=== PATIENT | male | born 1970 | race Caucasian/White ===

== ENCOUNTER 2017-07-08 07:23 | Emergency (ER) | payer MEDICARE, MEDICAID ==
[~2017-07-08] VITALS: Ht 162.6 cm; Wt 90.0 kg
[2017-07-08] MEDS ORDERED: normal saline 1000ML IV soln IVB ONE (07:55)
[2017-07-08] MEDS ORDERED: morphine 4 MG/ML inj SYRINge IV ONE (07:55)
[2017-07-08 08:04] LABS: BASOPHILS % (AUTO) 0.4 % (0-1); EOSINOPHILS # (AUTO) 0.3 X10'3 (0-0.9); EOSINOPHILS % (AUTO) 3.2 % (0-6); HEMATOCRIT 43.8 % (42.0-52.0); HEMOGLOBIN 14.3 g/dl (14.0-17.9); LYMPHOCYTES # (AUTO) 1.4 X10'3 (1.1-4.8); LYMPHOCYTES % (AUTO) 16.2 % (21-51); MEAN CORPUSCULAR HEMOGLOBIN 26.4 PG (27.0-31.0); MEAN CORPUSCULAR HGB CONC 32.7 % (33.0-36.5); MEAN CORPUSCULAR VOLUME 80.7 FL (78-98); MEAN PLATELET VOLUME 7.6 FL (7.4-10.4); MONOCYTES # (AUTO) 0.7 X10'3 (0-0.9); MONOCYTES % (AUTO) 8.8 % (2-12); NEUTROPHILS % (AUTO) 71.4 % (42-75); PLATELET COUNT 539 X10'3 (140-440); RED BLOOD COUNT 5.43 X10'6 (4.70-6.10); RED CELL DISTRIBUTION WIDTH 20.7 % (11.5-14.5); WHITE BLOOD COUNT 8.4 X10'3 (4.5-11.0)
[2017-07-08 08:25] LABS: ALANINE AMINOTRANSFERASE 31 U/L (12-78); ALBUMIN 3.7 G/DL (3.4-5.0); ALBUMIN/GLOBULIN RATIO 0.9 (1.1-1.5); ALKALINE PHOSPHATASE 124 IU/L (46-116); ANION GAP 16 (8-16); ASPARTATE AMINO TRANSFERASE 19 U/L (10-37); BILIRUBIN,TOTAL 0.9 MG/DL (0.1-1.0); BLOOD UREA NITROGEN 19 MG/DL (7-18); BUN/CREATININE RATIO 21.8 (5.4-32.0); CALCIUM 9.7 MG/DL (8.5-10.1); CHLORIDE 103 MMOL/L (99-107); CREATININE 0.87 MG/DL (0.60-1.10); ETHANOL < 0.010 GM/DL (0.0-0.010); GLUCOSE 118 MG/DL (70-104); POTASSIUM 3.3 MMOL/L (3.5-5.1); SODIUM 139 MMOL/L (135-145); TOTAL CARBON DIOXIDE 19.9 MMOL/L (24-32); TOTAL PROTEIN 7.8 G/DL (6.4-8.2); eGFR > 90 ML/MIN
[2017-07-08 08:52] LABS: CLARITY,URINE CLEAR (Clear); COLOR,URINE YELLOW (Yellow); GLUCOSE, URINE NEGATIVE (Neg); KETONES,URINE 40 mg/dl (Neg); LEUKOCYTE ESTERASE ,URINE NEGATIVE (Neg); NITRITES, URINE NEGATIVE (Neg); OCCULT BLOOD,URINE TRACE-INTACT (Neg); PROTEIN,URINE TRACE mg/dl (Neg); UROBILINOGEN,URINE 0.2 E.U/dL (0.2-1.0)
[2017-07-08 08:53] LABS: UA COLLECTION TYPE URINAL
[2017-07-08 09:01] LABS: WBC,URINE NONE SEEN /HPF (0-4)
[2017-07-08 09:02] LABS: BACTERIA,URINE NONE SEEN /HPF (Neg); MUCUS STRANDS FEW /LPF (Neg); RBC,URINE 0-2 /HPF (0-2); SQUAMOUS EPITHELIAL CELL,UR FEW /LPF (FEW)
[2017-07-08] MEDS ORDERED: IBUP-1984 PO (09:05)
[2017-07-08 09:08] LABS: URINE AMPHETAMINE SCREEN NEGATIVE (Neg); URINE BARBITUATE SCREEN NEGATIVE (Neg); URINE BENZODIAZEPINES SCREEN NEGATIVE (Neg); URINE CANNABINOID SCREEN POSITIVE (Neg); URINE COCAINE SCREEN NEGATIVE (Neg); URINE METHADONE SCREEN NEGATIVE (Neg); URINE OPIATE SCREEN POSITIVE (Neg); URINE PHENCYCLIDINE SCREEN NEGATIVE (Neg)
[2017-07-08 09:24] VITALS: BP 152/88
== END 2017-07-08 09:27 | disposition home or self-care (01) ==
LOC: ER 07:24
DX: N50.82 Scrotal pain (principal); N43.3 Hydrocele, unspecified; E78.5 Hyperlipidemia, unspecified; I10 Essential (primary) hypertension; K21.9 Gastro-esophageal reflux disease without esophagitis
CPT/HCPCS: 36415; 76870; 80053; 80305; 80320; 81001; 85025; 93005; 96374; 99285; J2270; J7030

== ENCOUNTER 2017-08-21 19:01 | Emergency (ER) | payer MEDICARE, OTHER ==
[~2017-08-21] VITALS: Ht 162.6 cm; Wt 80.7 kg
[2017-08-21 19:06] VITALS: BP 101/74
== END 2017-08-21 20:34 | disposition home or self-care (01) ==
LOC: ER 19:02
DX: F19.10 Other psychoactive substance abuse, uncomplicated (principal); F41.9 Anxiety disorder, unspecified; E78.00 Pure hypercholesterolemia, unspecified; I10 Essential (primary) hypertension; K21.9 Gastro-esophageal reflux disease without esophagitis; F12.90 Cannabis use, unspecified, uncomplicated; F15.90 Other stimulant use, unspecified, uncomplicated
CPT/HCPCS: 99283

== ENCOUNTER 2018-03-28 18:12 | Emergency (ER) | payer MEDICARE, OTHER ==
[~2018-03-28] VITALS: Ht 162.6 cm; Wt 67.3 kg
[2018-03-28 18:47] VITALS: BP 147/92
--- NOTE | 2018-03-28 19:14 | NUR ---
CONTACTED TELEPSYCH TO INITIATE CONSULT.
[2018-03-28 19:48] LABS: ALBUMIN 2.9 G/DL (3.4-5.0); ANION GAP 12 (8-16); BLOOD UREA NITROGEN 17 MG/DL (7-18); BUN/CREATININE RATIO 22.7 (5.4-32.0); CALCIUM 8.4 MG/DL (8.5-10.1); CHLORIDE 109 MMOL/L (99-107); CREATININE 0.75 MG/DL (0.60-1.10); GLUCOSE 77 MG/DL (70-104); POTASSIUM 3.6 MMOL/L (3.5-5.1); SODIUM 148 MMOL/L (135-145); TOTAL CARBON DIOXIDE 26.6 MMOL/L (24-32); eGFR > 90 ML/MIN
[2018-03-28 19:50] LABS: BASOPHILS % (AUTO) 0.3 % (0-1); EOSINOPHILS # (AUTO) 0.3 X10'3 (0-0.9); EOSINOPHILS % (AUTO) 3.8 % (0-6); HEMATOCRIT 35.5 % (42.0-52.0); HEMOGLOBIN 11.9 g/dl (14.0-17.9); LYMPHOCYTES # (AUTO) 1.8 X10'3 (1.1-4.8); MEAN CORPUSCULAR HEMOGLOBIN 29.2 PG (27.0-31.0); MEAN CORPUSCULAR HGB CONC 33.4 g/dL (33.0-36.5); MEAN CORPUSCULAR VOLUME 87.5 FL (78-98); MEAN PLATELET VOLUME 6.8 FL (7.4-10.4); MONOCYTES # (AUTO) 0.5 X10'3 (0-0.9); MONOCYTES % (AUTO) 7.1 % (2-12); NEUTROPHILS % (AUTO) 64.8 % (42-75); PLATELET COUNT 527 X10'3 (140-440); RED BLOOD COUNT 4.06 X10'6 (4.70-6.10); RED CELL DISTRIBUTION WIDTH 17.6 % (11.5-14.5); WHITE BLOOD COUNT 7.7 X10'3 (4.5-11.0)
[2018-03-28 19:56] LABS: URINE AMPHETAMINE SCREEN POSITIVE (Neg); URINE BARBITUATE SCREEN NEGATIVE (Neg); URINE BENZODIAZEPINES SCREEN NEGATIVE (Neg); URINE CANNABINOID SCREEN POSITIVE (Neg); URINE COCAINE SCREEN NEGATIVE (Neg); URINE METHADONE SCREEN NEGATIVE (Neg); URINE OPIATE SCREEN POSITIVE (Neg); URINE PHENCYCLIDINE SCREEN NEGATIVE (Neg)
== END 2018-03-28 20:43 | disposition home or self-care (01) ==
LOC: ER 18:13
DX: R45.851 Suicidal ideations (principal); F10.10 Alcohol abuse, uncomplicated; F15.10 Other stimulant abuse, uncomplicated; E78.00 Pure hypercholesterolemia, unspecified; I10 Essential (primary) hypertension; K21.9 Gastro-esophageal reflux disease without esophagitis; G89.29 Other chronic pain; F32.9 Major depressive disorder, single episode, unspecified; F12.90 Cannabis use, unspecified, uncomplicated; Z76.5 Malingerer [conscious simulation]; Z59.0 Homelessness; Z56.0 Unemployment, unspecified; Y90.9 Presence of alcohol in blood, level not specified
CPT/HCPCS: 36415; 80048; 80305; 85025; 99284

== ENCOUNTER 2018-05-22 22:18 | Emergency (ER) | payer MEDICARE, MEDICAID ==
[~2018-05-22] VITALS: Ht 165.1 cm; Wt 64.3 kg
[2018-05-22 22:32] VITALS: BP 138/70
[2018-05-22] MEDS ORDERED: ESOM40CA30 PO (23:32)
[2018-05-22] MEDS ORDERED: AMLO10TA PO (23:32)
[2018-05-22] MEDS ORDERED: ATOR40TA PO (23:32)
[2018-05-24] MEDS ORDERED: FLUO20CA39 PO (09:43)
[2018-05-24] MEDS ORDERED: LAMO25TA94 PO ×2 (09:44→10:48)
[2018-05-24] MEDS ORDERED: PANT20TA2 PO (09:44)
[2018-05-24] MEDS ORDERED: IBUP-1984 PO (09:45)
[2018-05-24] MEDS ORDERED: AMLO-94 PO (10:15)
[2018-05-24] MEDS ORDERED: ATOR10TA87 PO (10:15)
[2018-05-24] MEDS ORDERED: FLO0.4C PO (17:21)
[2018-05-26] MEDS ORDERED: PANT-47 PO (13:05)
[2018-05-26] MEDS ORDERED: LIDO20SO16 PO (13:05)
[2018-05-26] MEDS ORDERED: VALA10002 PO (13:05)
== END 2018-05-23 00:04 | disposition home or self-care (01) ==
LOC: ER 22:18
DX: I10 Essential (primary) hypertension (principal); K21.9 Gastro-esophageal reflux disease without esophagitis; E78.00 Pure hypercholesterolemia, unspecified; G89.29 Other chronic pain; F12.90 Cannabis use, unspecified, uncomplicated; F15.90 Other stimulant use, unspecified, uncomplicated; Z76.0 Encounter for issue of repeat prescription; Z56.0 Unemployment, unspecified; Z59.0 Homelessness; Z79.899 Other long term (current) drug therapy
CPT/HCPCS: 99283

== ENCOUNTER 2018-05-26 13:27 | Inpatient (IN) | payer MEDICARE, MEDICAID ==
[~2018-05-26] VITALS: Ht 162.6 cm; Wt 70.7 kg
[~2018-05-26 13:27] MED LIST: AMLO-94 PO; ATOR10TA87 PO; FLO0.4C PO; FLUO20CA39 PO; IBUP-1984 PO; LAMO25TA94 PO; LIDO20SO16 PO; PANT-47 PO; PANT20TA2 PO; VALA10002 PO
--- NOTE | 2018-05-26 13:45 | NUR ---
Admission note: PT arrives on unit at 1345. Pt is admitted for depression and suicidal ideation. Pt states his medication is not working and he wants to kill himself. Pt plans to shoot himself, or overdose on heroin or walk into traffic. Pt 5150 written by police after pt was kicked out of a hotel. Pt has large bags of belongings that are being inventoried now. Pt oriented to the unit. Pt cooperative with the admission process.
--- NOTE | 2018-05-26 13:50 | NUR ---
Pt. arrived on unit via wheelchair. Pt. is calm and withdrawn, initially resistive to answering questions, but becomes cooperative. Pt. reports SI with plan to OD on heroin. Pt. denies HI. Pt. denies A/V H. Pt.'s vitals are 98.4 temp, 83 HR, 16 Resp, 97% SP02 on room air and bp of 121/72. Pt. assessed and has small wounds on bilateral feet, pictures taken, please see chart. Pt. reports he is hungry, that he lost 20lbs in 1 months. Dietary consult placed. Pt. is A&O x4. Addendum: 05/26/18 at 1531 by David Reyna RN Pt.'s body and belongings check done. Belongings inventoried. Pt. given snack and juice and resting comfortably in bed.
[2018-05-26] MEDS ORDERED: loperamide 2mg capsule PO PRN (14:00)
[2018-05-26] MEDS ORDERED: magnesium hydroxide 30ml (MOM) UD suspension PO PRN (14:00)
[2018-05-26] MEDS ORDERED: acetaminophen 325mg tablet PO PRN (14:00)
[2018-05-26] MEDS ORDERED: hydrOXYzine 25 MG tablet PO PRN (14:00)
[2018-05-26] MEDS ORDERED: mag hydrox/Alum hydrox/simeth 30ml oral suspension PO PRN (14:00)
[2018-05-26] MEDS ORDERED: LIDOcaine Viscous 15ml cup MM PRN (14:00)
[2018-05-26] MEDS ORDERED: tuberculin, purif. prot. deriv. 5 units/0.1ml ID ONE (14:00)
[2018-05-26] MEDS ORDERED: atorvastatin 10mg tablet PO SCH (14:01)
--- NOTE | 2018-05-26 15:34 | NUR ---
Malnutrition consult re: pt reports wt loss of 30 # d/t fasting over a month. Unable to assess for wt loss d/t patient's past documented weights being unreliable as they are pt stated or with significant discrepancies with documented wt of 71.6 kg and 78.45 kg both using chair scale taken on the same day (12/22/17). Current wt is 51.54 kg using bed scale with BMI of 19.5 on the lower end of appropriate. Pt currently on a regular diet, pending PO intake however noted that pt with 100% intake while in ED 05/24-05/26 meeting nutrient needs. Pt currently with no physical assessment documented. EMR currently lacking information needed to fully assess for malnutrition. Will f/u tomorrow. Addendum: 05/26/18 at [address] Amended: Links added.
[2018-05-26] MEDS: LORazepam 1 MG tablet PO PRN (16:05)
[2018-05-26] MEDS: valacyclovir 500mg tablet PO SCH (16:11)
[2018-05-26] MEDS: ibuprofen tablet 400 MG TABLET PO SCH (16:11)
[2018-05-26] MEDS: nicotine 21mg patch - 24 hr TD SCH (16:13)
[2018-05-26 20:00] VITALS: BP 121/82
[2018-05-26] MEDS: lamoTRIgine 25mg tablet PO SCH (21:01)
[2018-05-27] MEDS: valacyclovir 500mg tablet PO SCH ×4 (02:59→21:26)
--- NOTE | 2018-05-27 04:32 | NUR ---
Nursing Progress Note: Legal hold:5150 Client on voluntary/involuntary status for GD/DTS/DTO : DTS Report received from nurse with use of SBAR: from Sander GROVER Why are they here: Pt is admitted for depression and suicidal ideation. Pt states his medication is not working and he wants to kill himself. Pt plans to shoot himself, or overdose on heroin or walk into traffic. Pt 5150 written by police after pt was kicked out of a hotel. PT has hx of methamphetamine abuse Assessment What has happened this shift: Pt has slept entirety of the shift. Pt cooperative with assessment and offers no complaints at this time. Pt admits he is feeling suicidal but will not specify what his plan is. S/I, H/I: suicidal ideation with no clear plan A/VH: denies Sleep: see sleep assessment notation ADL's: self Group attendance:welder 2nd shift, no group Were meds taken:yes Any med S/E: none reported, none observed Mental Status Exam Appearance: WNL Eye contact: limited Behavior:sleeps all shift Speech:clear, short Mood: depressed Affect:flat Thought process:linear Thought Content:"I just want to sleep." Cognition:impaired Insight:poor Judgment:poor Interventions PRN's used:NA Therapeutic interventions:1:1 allowed pt to express thoughts and feelings, Q15 minute safety checks, therapeutic listening Restraints/seclusion/emergency medication:N/A Justification of Continued Inpatient Treatment: Pt is currently homeless and at high risk for relapse on methamphetamine. He is stating he has active suicidal ideation and no plan for food or jail.
[2018-05-27] MEDS: tamsulosin 0.4mg capsule PO SCH (07:29)
[2018-05-27] MEDS: amLODIPine 5mg tablet PO SCH (07:29)
[2018-05-27] MEDS: lisinopril 20mg tablet PO SCH (07:31)
[2018-05-27] MEDS: pantoprazole 40mg Tablet.DR PO SCH (07:32)
[2018-05-27] MEDS: lamoTRIgine 25mg tablet PO SCH ×2 (07:32→20:18)
[2018-05-27] MEDS: ibuprofen tablet 400 MG TABLET PO SCH ×4 (07:33→21:26)
[2018-05-27] MEDS: FLUoxetine 20mg capsule PO SCH (07:34)
[2018-05-27] MEDS: atorvastatin 10mg tablet PO SCH (07:34)
[2018-05-27 08:00] VITALS: BP 119/57
[2018-05-27 08:22] LABS: CHOLESTEROL 127 MG/DL (0-200); HDL CHOLESTEROL 42 MG/DL (35-60); LDL CHOLESTEROL 73 MG/DL (50-100); TRIGLYCERIDES 71 MG/DL (20-135)
[2018-05-27 08:57] LABS: HEMOGLOBIN A1C 5.8 % (4.5-6.2)
[2018-05-27] MEDS: nicotine 21mg patch - 24 hr TD SCH (14:10)
--- NOTE | 2018-05-27 16:22 | NUR ---
Nursing Progress Note: Legal hold:5150 Client on voluntary/involuntary status for GD/DTS/DTO : DTS Report received from nurse with use of SBAR: from Didi GROVER Why are they here: Pt is admitted for depression and suicidal ideation. Pt states his medication is not working and he wants to kill himself. Pt plans to shoot himself, or overdose on heroin or walk into traffic. Pt 5150 written by police after pt was kicked out of a hotel. PT has hx of methamphetamine abuse Assessment What has happened this shift: Pt has been in bed for the majority of the shift. Pt. cooperative with assessment and offers no complaints at this time. Pt admits he is feeling suicidal but will not specify what his plan is. Pt. is withdrawn and isolative. Pt. states, "I'm depressed and I don't want to go to group". Pt. is focused on going to rehab program. S/I, H/I: suicidal ideation with no clear plan A/VH: denies Sleep: Pt. napped during shift. ADL's: self Group attendance: No group attendance. Were meds taken:yes Any med S/E: none reported, none observed Mental Status Exam Appearance: WNL Eye contact: limited Behavior:sleeps all shift Speech:clear, short Mood: depressed Affect:flat Thought process:linear Thought Content: focused on going to a rehab program. Cognition:impaired Insight:poor Judgment:poor Interventions PRN's used:NA Therapeutic interventions:1:1 allowed pt to express thoughts and feelings, Q15 minute safety checks, therapeutic listening Restraints/seclusion/emergency medication:N/A Justification of Continued Inpatient Treatment: Pt is currently homeless and at high risk for relapse on methamphetamine. He is stating he has active suicidal ideation and no plan for food or residential.
[2018-05-27 20:00] VITALS: BP 116/72
[2018-05-27] MEDS: acetaminophen 325mg tablet PO PRN (20:19)
[2018-05-27] MEDS: LORazepam 1 MG tablet PO PRN (21:26)
--- NOTE | 2018-05-28 00:23 | NUR ---
Nursing Progress Note Legal hold: 5150 (Ends 05/29 @ 1315) Client on voluntary/involuntary status for: DTS Report received with use of SBAR from: Killian RN Why are they here: Pt is admitted for depression and suicidal ideation. Pt states his medication is not working and he wants to kill himself. Pt plans to shoot himself, or overdose on heroin or walk into traffic. Pt 5150 written by police after pt was kicked out of a hotel. PT has hx of methamphetamine abuse Assessment What has happened this shift: Pt meeting with MD at change of shift; after he went to rest in his room. During 1:1 pt was fidgety and made intermittent eye contact. Responses to questions were minimal. Pt stated he still feels suicidal but no longer has a specific plan. he says he feels anxious but could not elaborate on the exact reason. He thinks a rehab program would be the best option for him at discharge so he can "regain control of his life". Pt showered. He was compliant with medications. MD ordered Neosporin and antifungal cream for wounds and fungus on feet. S/I, H/I: +SI without plan, Denies HI A/VH: Denies Sleep: See Charting ADL's: Independent Group attendance: Y - HS Snack Were meds taken: Y Any med S/E: None reported, None observed Mental Status Exam Appearance: Clean, wearing unit green scrubs and nonskid socks Eye contact: Intermittent Behavior: In room resting most of shift, but did attend and eat snack in group room Speech: Clear, Minimal Mood: "I feel sad" Affect: Flat Thought process: Linear Thought Content: Feeling sad and suicidal, wanting to attend a rehab program Cognition: A&Ox4 Insight: Poor Judgment: Poor to fair Interventions PRN's used: Tylenol 650mg for pain 3/10 - generalized; Ativan 1 mg for anxiety Therapeutic interventions:1:1 allowed pt to express thoughts and feelings, Q15 minute safety checks, therapeutic listening Restraints/seclusion/emergency medication: None Justification of Continued Inpatient Treatment: Pt is currently homeless and at high risk for relapse on methamphetamine. He is stating he has active suicidal ideation and no plan for food or residential.
[2018-05-28] MEDS: pantoprazole 40mg Tablet.DR PO SCH (07:54)
[2018-05-28] MEDS: nicotine 21mg patch - 24 hr TD SCH (07:54)
[2018-05-28] MEDS: ibuprofen tablet 400 MG TABLET PO SCH ×3 (07:54→20:53)
[2018-05-28] MEDS: FLUoxetine 20mg capsule PO SCH (07:54)
[2018-05-28] MEDS: lisinopril 20mg tablet PO SCH (07:55)
[2018-05-28] MEDS: tamsulosin 0.4mg capsule PO SCH (07:55)
[2018-05-28] MEDS: valacyclovir 500mg tablet PO SCH ×3 (07:55→20:53)
[2018-05-28] MEDS: amLODIPine 5mg tablet PO SCH (07:56)
[2018-05-28] MEDS: atorvastatin 10mg tablet PO SCH (07:56)
[2018-05-28] MEDS: lamoTRIgine 25mg tablet PO SCH ×2 (07:56→20:54)
[2018-05-28 08:00] VITALS: BP 138/92
[2018-05-28] MEDS: neomy sulf/bacitrac zn/polymixin b oint 14.2 gm tube TP SCH ×2 (08:00→20:54)
[2018-05-28] MEDS ORDERED: lurasidone 20mg tablet PO SCH (08:00)
[2018-05-28] MEDS: LORazepam 1 MG tablet PO PRN (08:09)
--- NOTE | 2018-05-28 10:48 | NUR ---
Nursing Progress Note Legal hold: 5150 (Ends 05/29 @ 1315) Client on voluntary/involuntary status for: DTS Report received with use of SBAR from: LENORE Tolbert Why are they here: Pt is admitted for depression and suicidal ideation. Pt states his medication is not working and he wants to kill himself. Pt plans to shoot himself, or overdose on heroin or walk into traffic. Pt 5150 written by police after pt was kicked out of a hotel. PT has hx of methamphetamine abuse Assessment What has happened this shift: Patient was up at change of shift in group room. Ate breakfst and took all medications. C/O feeling "anxious" at breakfast and requested an Ativan which was given. Took nap after breakfast. Neosporin was applied to feet. Denies feeling suicidal at this time. Goes to groups. States he would like to go to a rehab program and also go home to [place]. Mood is depressed, blunted affect. Calm and cooperative behavior. S/I, H/I: Denies A/VH: Denies Sleep: Naps ADL's: Independent Group attendance: Yes Were meds taken: Yes Any med S/E: None reported, None observed Mental Status Exam Appearance: Clean, wearing unit green scrubs and nonskid socks Eye contact: direct at times Behavior: Cooperative Speech: Clear Mood: Depressed Affect: Blunted Thought process: Linear, goal directed Thought Content: Going home to [place], wanting to attend a rehab program Cognition: A&Ox4 Insight: Poor Judgment: Poor to fair Interventions PRN's used: Ativan 1 mg for anxiety Therapeutic interventions:1:1 allowed pt to express thoughts and feelings, Q15 minute safety checks, therapeutic listening and therapeutic environment, reassurance. Restraints/seclusion/emergency medication: None Justification of Continued Inpatient Treatment: Pt is currently homeless and at high risk for relapse on methamphetamine. He is stating he has active suicidal ideation and no plan for food or care home.
[2018-05-28 20:00] VITALS: BP 119/69
[2018-05-28] MEDS: miconazole nitrate cream 57gm TP SCH (20:54)
--- NOTE | 2018-05-28 23:03 | NUR ---
Nursing Progress Note Legal hold: 5150 (Ends 05/29 @ 1315) Client on voluntary/involuntary status for: DTS Report received with use of SBAR from: LENORE Sheehan Why are they here: Pt is admitted for depression and suicidal ideation. Pt states his medication is not working and he wants to kill himself. Pt plans to shoot himself, or overdose on heroin or walk into traffic. Pt 5150 written by police after pt was kicked out of a hotel. PT has hx of methamphetamine abuse Assessment What has happened this shift: Patient in bed at [facility] e of shift. He isolates in his room and keeps to himself. He agrees to and is cooperative for a 1:1 assessment at his bedside. When asked about SI he states "Yes, that has been a thing." But denies any current plan to harm himself. He has complaints about the bottom of his feet hurting. It is noted that patient has some dry skin, skin flaps to the bottom of his feet and he has medicated ointment ordered for it that is applied as ordered. He is compliant with all his evening medications and goes to sleep after he eats an evening snack. S/I, H/I: Denies A/VH: Denies Sleep: Naps ADL's: Independent Group attendance: No groups this shift Were meds taken: Yes Any med S/E: None reported, None observed Mental Status Exam Appearance: Clean, wearing green scrubs and nonskid socks Eye contact: direct at times Behavior: Cooperative Speech: Clear Mood: Depressed Affect: Blunted Thought process: Linear Thought Content: Pain to the bottoms of his feet Cognition: A&Ox4 Insight: Poor Judgment: Poor to fair Interventions PRN's used: None Therapeutic interventions: 1:1 at bedside to assess for severity of symptoms. Provided active listening and therapeutic communication, provided medication education w/administration and monitored for side effects. Encouraged group attendance and participation, maintained q15min safety checks. Restraints/seclusion/emergency medication: None Justification of Continued Inpatient Treatment: Pt is currently homeless and at high risk for relapse on methamphetamine. He is stating he has active suicidal ideation and no plan for food or nursing home.
[2018-05-29] MEDS: nicotine 21mg patch - 24 hr TD SCH (07:39)
[2018-05-29 08:00] VITALS: BP 128/80
[2018-05-29] MEDS: neomy sulf/bacitrac zn/polymixin b oint 14.2 gm tube TP SCH ×2 (08:00→19:40)
[2018-05-29] MEDS: valacyclovir 500mg tablet PO SCH ×3 (08:09→19:40)
[2018-05-29] MEDS: FLUoxetine 20mg capsule PO SCH (08:09)
[2018-05-29] MEDS: atorvastatin 10mg tablet PO SCH (08:10)
[2018-05-29] MEDS: amLODIPine 5mg tablet PO SCH (08:10)
[2018-05-29] MEDS: ibuprofen tablet 400 MG TABLET PO SCH ×3 (08:10→19:40)
[2018-05-29] MEDS: lamoTRIgine 25mg tablet PO SCH ×2 (08:10→19:40)
[2018-05-29] MEDS: pantoprazole 40mg Tablet.DR PO SCH (08:10)
[2018-05-29] MEDS: tamsulosin 0.4mg capsule PO SCH (08:11)
[2018-05-29] MEDS: lisinopril 20mg tablet PO SCH (08:11)
--- NOTE | 2018-05-29 13:02 | NUR ---
Nursing Progress Note Legal hold: 5150 (Ends 05/29 @ 1315) Client on voluntary/involuntary status for: DTS Report received with use of SBAR from: LENORE Romero Why are they here: Pt is admitted for depression and suicidal ideation. Pt states his medication is not working and he wants to kill himself. Pt plans to shoot himself, or overdose on heroin or walk into traffic. Pt 5150 written by police after pt was kicked out of a hotel. PT has hx of methamphetamine abuse Assessment What has happened this shift: The patient is asleep at change of shift. Up for breakfast and is med compliant. He is lethargic most probable due to having Latuda in am per MD. Frequency changed to HS only. Depressed, sad mood with blunted affect. Reports still having suicidal thoughts and feeling very "sad." Went to morning group but still feeling quite sleepy and napped until lunch time. Reports being willing and wanting help and to get into a program. Wants to return to [place] where he has family and his home of origin. Isolative. Polite and calm. S/I, H/I: some passive thoughts of Suicide A/VH: Denies Sleep: Naps ADL's: Independent Group attendance: Yes Were meds taken: Yes Any med S/E: None reported, None observed Mental Status Exam Appearance: Clean, wearing unit green scrubs and nonskid socks Eye contact: direct at times Behavior: Cooperative Speech: Clear Mood: Depressed Affect: Blunted Thought process: Linear, goal directed Thought Content: Going home to [place], wanting to attend a rehab program Cognition: A&Ox4 Insight: Poor Judgment: Poor to fair Interventions PRN's used: None Therapeutic interventions:1:1 allowed pt to express thoughts and feelings, Q15 minute safety checks, therapeutic listening and therapeutic environment, reassurance. Restraints/seclusion/emergency medication: None Justification of Continued Inpatient Treatment: Pt is currently homeless and at high risk for relapse on methamphetamine. He is stating he has active suicidal ideation and no plan for food or intermediate.
[2018-05-29] MEDS: LORazepam 1 MG tablet PO PRN (19:40)
[2018-05-29] MEDS: miconazole nitrate cream 57gm TP SCH (19:40)
[2018-05-29 19:48] VITALS: BP 118/66
[2018-05-29 19:58] VITALS: BP 118/66
[2018-05-29] MEDS: lurasidone 20mg tablet PO SCH (20:45)
[2018-05-29] MEDS: acetaminophen 325mg tablet PO PRN (20:46)
--- NOTE | 2018-05-30 00:47 | NUR ---
Nursing Progress Note Legal hold: Voluntary Client on voluntary/involuntary status for: DTS Report received with use of SBAR from: LENORE Smith Why are they here: Pt is admitted for depression and suicidal ideation. Pt states his medication is not working and he wants to kill himself. Pt plans to shoot himself, or overdose on heroin or walk into traffic. Pt 5150 written by police after pt was kicked out of a hotel. PT has hx of methamphetamine abuse Assessment What has happened this shift: Patient in bed at change of shift. He isolates in his room mostly, occasionally coming out of his room for snack. He has complaints of anxiety this shift. Ativan 1 mg PO administered at 1940 with good effect. When asking about his anxiety patient states "I don't like to talk about it, my problems. It makes me sound paranoid, delusional and I'm not. It's real man." Then would not elaborate anymore when asked. He confirms some passive SI and depression. Patient also has complaints of pain to bilateral feet that was treated with Motrin and Tylenol. Nicotine patch removed from right shoulder at HS. Patient is cooperative with all evening medications. S/I, H/I: Passive SI, no plan explained, Denies HI A/VH: Denies Sleep: Currently sleeping, see sleep assessment ADL's: Independent Group attendance: No groups this shift Were meds taken: Yes Any med S/E: None reported, None observed Mental Status Exam Appearance: Clean, wearing green scrubs and nonskid socks Eye contact: Makes eye contact occasionally Behavior: Cooperative Speech: Normal rate, volume and rhythm Mood: Depressed Affect: Blunted Thought process: Linear Thought Content: Pain to the bottoms of his feet, anxiety, worried about what others think Cognition: A&Ox4 Insight: Poor Judgment: Poor to fair Interventions PRN's used: None Therapeutic interventions: 1:1 at bedside to assess for severity of symptoms. Provided active listening and therapeutic communication, provided medication education w/administration and monitored for side effects. Encouraged group attendance and participation, maintained q15min safety checks. Restraints/seclusion/emergency medication: None Justification of Continued Inpatient Treatment: Pt is currently homeless and at high risk for relapse on methamphetamine. He is stating he has active suicidal ideation and no plan for food or senior care.
[2018-05-30 07:45] VITALS: BP 112/74
[2018-05-30] MEDS: FLUoxetine 20mg capsule PO SCH (08:15)
[2018-05-30] MEDS: lamoTRIgine 25mg tablet PO SCH ×2 (08:15→19:16)
[2018-05-30] MEDS: pantoprazole 40mg Tablet.DR PO SCH (08:15)
[2018-05-30] MEDS: atorvastatin 10mg tablet PO SCH (08:16)
[2018-05-30] MEDS: lisinopril 20mg tablet PO SCH (08:16)
[2018-05-30] MEDS: tamsulosin 0.4mg capsule PO SCH (08:16)
[2018-05-30] MEDS: amLODIPine 5mg tablet PO SCH (08:16)
[2018-05-30] MEDS: ibuprofen tablet 400 MG TABLET PO SCH ×3 (08:17→19:16)
[2018-05-30] MEDS: valacyclovir 500mg tablet PO SCH ×3 (08:17→19:16)
[2018-05-30] MEDS: neomy sulf/bacitrac zn/polymixin b oint 14.2 gm tube TP SCH ×2 (08:17→19:16)
[2018-05-30] MEDS: nicotine 21mg patch - 24 hr TD SCH (08:22)
--- NOTE | 2018-05-30 12:08 | NUR ---
Nursing Progress Note: Legal hold: Voluntary Client on voluntary/involuntary status for: DTS Report received with use of SBAR from: LENORE Sampson Why are they here: Pt is admitted for depression and suicidal ideation. Pt states his medication is not working and he wants to kill himself. Pt plans to shoot himself, or overdose on heroin or walk into traffic. Pt 5150 written by police after pt was kicked out of a hotel. PT has hx of methamphetamine abuse Assessment What has happened this shift: Pt rated depression at a 4/10, continues to endorse SI with plan to OD on heroin, states, "I don't even use heroin...all you need is a little bit of money to get it." Pt contracts for safety here denies HI/AH/VH, when asked about anxiety replied, "a little." Indicated that anxiety was over what was going to happen with his discharge. Pt stated he continues to have SI because of "everything that's been going on...the government." Pt is paranoid, delusional, and religiously preoccupied. He perseverates on the government plotting against him, "oh they're involved...the 2nd coming, the fallen angels." Pt indicated that the government is in league with the fallen angels to prevent the 2nd coming of [place]. When asked pt how he knew about all of this, he replied, "I was born into it...I'm one of God's people." S/I, H/I: Denies HI, endorsing SI with plan to OD on heroin, contracts for safety here A/VH: Pt denies Sleep: Slept 7.5 hours per noc shift report, napped after breakfast ADL's: Independent Group attendance: Attended am group Were meds taken: Yes Any med S/E: None reported or observed Mental Status Exam Appearance: Clean, wearing green scrubs and nonskid socks Eye contact: Fair Behavior: cooperative, mostly isolative to self Speech: Soft spoken slow speech with southern accent Mood: depressed Affect: Blunted, somewhat constricted Thought process: Linear Thought Content: paranoid, delusional, religiously preoccupied, perseverates that the government is plotting against him Cognition: A&Ox4 Insight: Poor Judgment: Poor Interventions PRN's used: None Therapeutic interventions: 1:1 assessment, encouragement to express thoughts and feelings, active listening, establishment of rapport, medication administration/education/monitoring, encouragement to attend groups, Q15 min safety checks. Restraints/seclusion/emergency medication: None Justification of Continued Inpatient Treatment: Pt needs crisis stabilization & medication adjustment in a safe and therapeutic environment. Pt is currently homeless and at high risk for relapse on methamphetamine, he is paranoid and delusional, he continues to endorse SI, he has no viable plan for food, clothing or [place] [facility]. Addendum: 05/30/18 at 1456 by Paola "Blair" Woodman GROVER Pt c/o feeling dizzy, said he had to go lie down, pt states he believes it is due to the Latuda which makes him feel tired but then mentioned that he hadn't been drinking very much today. BP was 91/69, P 96, O2 sat 100% on RA. Encouraged pt to increase fluid intake, water pitcher at bedside, pt took some gulps.
[2018-05-30 14:50] VITALS: BP 91/69
[2018-05-30] MEDS: LORazepam 1 MG tablet PO PRN (19:16)
--- NOTE | 2018-05-30 19:51 | NUR ---
Nursing Progress Note: Legal hold: Voluntary Client on voluntary/involuntary status for: DTS Report received with use of SBAR from: LENORE Pinto Why are they here: Pt is admitted for depression and suicidal ideation. Pt states his medication is not working and he wants to kill himself. Pt plans to shoot himself, or overdose on heroin or walk into traffic. Pt 5150 written by police after pt was kicked out of a hotel. PT has hx of methamphetamine abuse Assessment What has happened this shift: Pt was in his room at change of shift. 1:1 assessment completed at bedside. Pt continues to endorse s/i w/plan to OD on heroin. Pt reports that he is still feeling sleepy/fatigued during the day and thinks this is because of latuda. Pt is med compliant. Pt c/o foot pain r/t athletes foot. Pt states he attended groups today but didnt watch "the movie because I felt dizzy and was falling down." Pt states he is not dizzy now. BP is 127/75. Pt states he is hopeful he is going to rehab and is hoping to 'get better". Pt reports sleeping well and appetite is good. States he is still feeling hungry. Explained to pt that he would be getting a snack this evening w/his latuda. S/I, H/I: Denies HI, endorsing SI with plan to OD on heroin, contracts for safety here A/VH: Pt denies Sleep: reports sleeping well ADL's: Independent Group attendance: no evening groups Were meds taken: Yes Any med S/E: reports feeling fatigued w/latuda Mental Status Exam Appearance: adequately groomed and dressed, applied clean sock after foot medicine was applied Eye contact: good Behavior: cooperative, mostly isolative to self Speech: Soft spoken slow speech with southern accent Mood: depressed Affect: Blunted, somewhat constricted Thought process: Linear, guarded Thought Content: talking about going to rehab of some type and c/o feeling tired during the day Cognition: A&Ox4 Insight: Poor Judgment: Poor Interventions PRN's used: None Therapeutic interventions: 1:1 assessment, encouragement to express thoughts and feelings, active listening, establishment of rapport, medication administration/education/monitoring, encouragement to attend groups, Q15 min safety checks. Restraints/seclusion/emergency medication: None Justification of Continued Inpatient Treatment: Pt needs crisis stabilization & medication adjustment in a safe and therapeutic environment. Pt is currently homeless and at high risk for relapse on methamphetamine, he is paranoid and delusional, he continues to endorse SI, he has no viable plan for food, clothing or nursing home. Addendum: 05/30/18 at 2022 by Yulia Romeo RN [facility] Dr Alexander[facility] been feeling [facility].
[2018-05-30 20:00] VITALS: BP 127/75
[2018-05-30] MEDS: lurasidone 20mg tablet PO SCH (20:22)
[2018-05-30] MEDS: miconazole nitrate cream 57gm TP SCH (20:24)
[2018-05-31 08:07] VITALS: BP 124/66
[2018-05-31] MEDS: FLUoxetine 20mg capsule PO SCH (08:27)
[2018-05-31] MEDS: lamoTRIgine 25mg tablet PO SCH ×2 (08:28→19:10)
[2018-05-31] MEDS: valacyclovir 500mg tablet PO SCH ×3 (08:28→19:10)
[2018-05-31] MEDS: pantoprazole 40mg Tablet.DR PO SCH (08:28)
[2018-05-31] MEDS: amLODIPine 5mg tablet PO SCH (08:28)
[2018-05-31] MEDS: lisinopril 20mg tablet PO SCH (08:28)
[2018-05-31] MEDS: tamsulosin 0.4mg capsule PO SCH (08:29)
[2018-05-31] MEDS: atorvastatin 10mg tablet PO SCH (08:29)
[2018-05-31] MEDS: neomy sulf/bacitrac zn/polymixin b oint 14.2 gm tube TP SCH ×2 (08:29→20:13)
[2018-05-31] MEDS: ibuprofen tablet 400 MG TABLET PO SCH ×3 (08:29→19:10)
[2018-05-31] MEDS: nicotine 21mg patch - 24 hr TD SCH (08:33)
--- NOTE | 2018-05-31 10:47 | NUR ---
Initial: Pt PO 100% regular diet meeting needs. LBM 05/31. No nutrition concerns at this time. Addendum: 05/31/18 at [address] Amended: Links added.
--- NOTE | 2018-05-31 11:37 | NUR ---
Nursing Progress Note: Legal hold: N/A Client on voluntary status Report received with use of SBAR from: LENORE Loyd Why are they here: Pt is admitted for depression and suicidal ideation. Pt states his medication is not working and he wants to kill himself. Pt plans to shoot himself, or overdose on heroin or walk into traffic. Pt 5150 written by police after pt was kicked out of a hotel. PT has hx of methamphetamine abuse. Assessment What has happened this shift: When asked if he was feeling depressed today, pt stated, "not really." "I'm feeling better today, I have more energy without that Latuda." Pt denied SI/HI/AH/VH, though continues to be delusional. When the [employer] brought up, pt stated that "They're always watching...when I'm walking down the street...they let me know...it's real." "My good friends are involved, it's been going on for a long time." S/I, H/I: Pt denies A/VH: Pt denies Sleep: Slept well per noc shift report ADL's: Independent Group attendance: Attended am group Were meds taken: Yes Any med S/E: None noted or reported today Mental Status Exam Appearance: Clean, wearing green scrubs and nonskid socks Eye contact: Good Behavior: cooperative, mostly isolative to self Speech: Soft spoken slow speech with southern accent Mood: "I'm feeling better today." Affect: Blunted, somewhat constricted Thought process: delusional, somewhat paranoid Thought Content: he is feeling better though still believes he is being watched by the [employer] Cognition: A&Ox4 Insight: Poor Judgment: Poor Interventions PRN's used: None Therapeutic interventions: 1:1 assessment, encouragement to express thoughts and feelings, active listening, establishment of rapport, medication administration/education/monitoring, encouragement to attend groups, Q15 min safety checks. Restraints/seclusion/emergency medication: None Justification of Continued Inpatient Treatment: Pt needs crisis stabilization & medication adjustment in a safe and therapeutic environment. Pt is currently homeless and at high risk for relapse on methamphetamine, he is paranoid and delusional with intermittent SI, he has no viable plan for food, clothing or nursing home.
[2018-05-31] MEDS: LORazepam 1 MG tablet PO PRN (19:10)
[2018-05-31 19:54] VITALS: BP 104/62
[2018-05-31] MEDS: miconazole nitrate cream 57gm TP SCH (20:13)
--- NOTE | 2018-05-31 23:39 | NUR ---
Nursing Progress Note: Legal hold: N/A Client on voluntary status Report received with use of SBAR from: LENORE Pinto Why are they here: Pt is admitted for depression and suicidal ideation. Pt states his medication is not working and he wants to kill himself. Pt plans to shoot himself, or overdose on heroin or walk into traffic. Pt 5150 written by police after pt was kicked out of a hotel. PT has hx of methamphetamine abuse. Assessment What has happened this shift: Pt was in bed at change of shift. 1:1 assessment completed at bedside. Pt denies s/i states he is feeling better and hopeful he will get placement. Pt talks about his foot and reports it is improving. Pt states he is feeling less tired after stopping the latuda but is still feeling somewhat hopeless. Pts appetite is good, reports sleeping well last night. Pt took a shower tonight but remained in his room otherwise. S/I, H/I: Pt denies A/VH: Pt denies Sleep: Slept well ADL's: Independent Group attendance: no evening groups Were meds taken: Yes Any med S/E: None noted or reported today Mental Status Exam Appearance: Pt showered this evening wearing green scrubs and nonskid socks Eye contact: Good Behavior: cooperative, isolates in his room Speech: Soft spoken slow speech with southern accent Mood: "I'm feeling better today." continues to have depression, feeling hopeless Affect: Blunted Thought process: delusional, somewhat paranoid Thought Content: reports he is feeling better today Cognition: A&Ox4 Insight: Poor Judgment: Poor Interventions PRN's used: None Therapeutic interventions: 1:1 assessment, encouragement to express thoughts and feelings, active listening, establishment of rapport, medication administration/education/monitoring, encouragement to attend groups, Q15 min safety checks. Restraints/seclusion/emergency medication: None Justification of Continued Inpatient Treatment: Pt needs crisis stabilization & medication adjustment in a safe and therapeutic environment. Pt is currently homeless and at high risk for relapse on methamphetamine, he is paranoid and delusional with intermittent SI, he has no viable plan for food, clothing or chcf.
--- NOTE | 2018-06-01 07:10 | NUR ---
"1:1 DISCHARGE PLANNING SW emailed Macey Pedro with the following for Journey Home Program: Good Afternoon Mama July, I am hoping we can connect with each other for Journey Home ticket and possible substance abuse treatment program in [place] for patient whom has been at our facility for a few days. From what I understand, he came to [place] to get clean and sober, then began using methamphetamine. He presents as very depressed and desires to return to the area where he as family and friend supports. Can you help us connect this gentleman to return home? Thank you, CATHY Mcdonald | [employer] II NOTE FROM 05/29/2018 AMENDED"
[2018-06-01] MEDS: atorvastatin 10mg tablet PO SCH (07:34)
[2018-06-01] MEDS: pantoprazole 40mg Tablet.DR PO SCH (07:35)
[2018-06-01] MEDS: ibuprofen tablet 400 MG TABLET PO SCH ×3 (07:35→19:40)
[2018-06-01] MEDS: amLODIPine 5mg tablet PO SCH (07:35)
[2018-06-01] MEDS: tamsulosin 0.4mg capsule PO SCH (07:37)
[2018-06-01] MEDS: lisinopril 20mg tablet PO SCH (07:37)
[2018-06-01] MEDS: FLUoxetine 20mg capsule PO SCH (07:37)
[2018-06-01] MEDS: lamoTRIgine 25mg tablet PO SCH ×2 (07:38→19:40)
[2018-06-01] MEDS: valacyclovir 500mg tablet PO SCH ×3 (07:39→19:40)
[2018-06-01] MEDS: nicotine 21mg patch - 24 hr TD SCH (07:40)
[2018-06-01 08:00] VITALS: BP 122/74
[2018-06-01] MEDS: neomy sulf/bacitrac zn/polymixin b oint 14.2 gm tube TP SCH ×2 (08:51→19:40)
[2018-06-01] MEDS: LORazepam 1 MG tablet PO PRN ×2 (13:52→21:55)
--- NOTE | 2018-06-01 17:30 | NUR ---
Nursing Progress Note: Legal hold: N/A Client on voluntary status Report received with use of SBAR from: LENORE Pena Why are they here: Pt is admitted for depression and suicidal ideation. Pt states his medication is not working and he wants to kill himself. Pt plans to shoot himself, or overdose on heroin or walk into traffic. Pt 5150 written by police after pt was kicked out of a hotel. PT has hx of methamphetamine abuse. Assessment What has happened this shift: Pt. in bed at beginning of shift. Pt. reports feeling depressed, pt. denies SI. Pt. requested Ativan prn for anxiety this afternoon. Pt. reports he is anxious about his future and if he will get into a rehab program. Pt. did not go to afternoon group. Pt. reports he would like to go to [facility] to do rehab. Pt. reports he has a cousin there who could help him get to appointments and such. S/I, H/I: Pt denies A/VH: Pt denies Sleep: napped x2 ADL's: Independent Group attendance: no evening groups Were meds taken: Yes Any med S/E: None noted or reported today Mental Status Exam Appearance: Pt showered yesterday evening, is wearing green scrubs and nonskid socks Eye contact: Good Behavior: cooperative, isolates in his room Speech: Soft spoken slow speech with southern accent Mood: continues to feel depressed and anxious, feeling hopeless Affect: Blunted Thought process: delusional Thought Content: discharge plans Cognition: A&Ox4 Insight: Poor Judgment: Poor Interventions PRN's used: Ativan Therapeutic interventions: 1:1 assessment, encouragement to express thoughts and feelings, active listening, establishment of rapport, medication administration/education/monitoring, encouragement to attend groups, Q15 min safety checks. Restraints/seclusion/emergency medication: None Justification of Continued Inpatient Treatment: Pt needs crisis stabilization & medication adjustment in a safe and therapeutic environment. Pt is currently homeless and at high risk for relapse on methamphetamine, he is paranoid and delusional with intermittent SI, he has no viable plan for food, clothing or intermediate.
[2018-06-01 20:00] VITALS: BP 117/71
[2018-06-01] MEDS: miconazole nitrate cream 57gm TP SCH (20:30)
--- NOTE | 2018-06-01 21:05 | NUR ---
Nursing Progress Note: Legal hold: N/A Client on voluntary status Report received with use of SBAR from: LENORE Hernandez Why are they here: Pt is admitted for depression and suicidal ideation. Pt states his medication is not working and he wants to kill himself. Pt plans to shoot himself, or overdose on heroin or walk into traffic. Pt 5150 written by police after pt was kicked out of a hotel. PT has hx of methamphetamine abuse. Assessment What has happened this shift: Pt was laying in bed at change of shift. 1:1 assessment completed at bedside. Pt denies s/i, reports some anxiety over his discharge plan. Pt states pain is 0/10 but then states his arms are giving him "problems". Pt continues to report feeling hopeless and some depression. Pt isolates in his room but comes into group room during snack. He slept well last night but is requesting something for sleep and more ativan. Suggested pt attempt to sleep first and we will address any sleep issues if he can't fall asleep. Pt agreed to this. Pt reports he is no longer having foot pain. S/I, H/I: Pt denies A/VH: Pt denies Sleep: slept well last night but is concerned he wont be able to sleep tonight ADL's: Independent Group attendance: no evening groups Were meds taken: Yes Any med S/E: None noted or reported today Mental Status Exam Appearance: Is wearing green scrubs and socks changed daily w/evening foot meds Eye contact: Good Behavior: cooperative, isolates in his room Speech: Soft spoken slow speech with southern accent Mood: continues to feel depressed and anxious, feeling hopeless Affect: Blunted Thought process: delusional Thought Content: discharge plans Cognition: A&Ox4 Insight: Poor Judgment: Poor Interventions PRN's used: none Therapeutic interventions: 1:1 assessment, encouragement to express thoughts and feelings, active listening, establishment of rapport, medication administration/education/monitoring, encouragement to attend groups, Q15 min safety checks. Restraints/seclusion/emergency medication: None Justification of Continued Inpatient Treatment: Pt needs crisis stabilization & medication adjustment in a safe and therapeutic environment. Pt is currently homeless and at high risk for relapse on methamphetamine, he is paranoid and delusional with intermittent SI, he has no viable plan for food, clothing or intermediate.
[2018-06-02 08:00] VITALS: BP 110/70
[2018-06-02] MEDS: neomy sulf/bacitrac zn/polymixin b oint 14.2 gm tube TP SCH ×2 (08:00→20:46)
[2018-06-02] MEDS: pantoprazole 40mg Tablet.DR PO SCH (08:03)
[2018-06-02] MEDS: atorvastatin 10mg tablet PO SCH (08:03)
[2018-06-02] MEDS: amLODIPine 5mg tablet PO SCH (08:03)
[2018-06-02] MEDS: tamsulosin 0.4mg capsule PO SCH (08:03)
[2018-06-02] MEDS: PALIPERIDONE 3 MG TAB.ER.24 PO SCH (08:03)
[2018-06-02] MEDS: ibuprofen tablet 400 MG TABLET PO SCH ×3 (08:03→20:46)
[2018-06-02] MEDS: lisinopril 20mg tablet PO SCH (08:05)
[2018-06-02] MEDS: FLUoxetine 20mg capsule PO SCH (08:05)
[2018-06-02] MEDS: valacyclovir 500mg tablet PO SCH ×3 (08:05→20:47)
[2018-06-02] MEDS: lamoTRIgine 25mg tablet PO SCH ×2 (08:08→20:46)
[2018-06-02] MEDS: nicotine 21mg patch - 24 hr TD SCH (08:59)
--- NOTE | 2018-06-02 13:47 | NUR ---
Nursing Progress Note: Legal hold: N/A Client on voluntary status Report received with use of SBAR from: LENORE Loyd Why are they here: Pt is admitted for depression and suicidal ideation. Pt states his medication is not working and he wants to kill himself. Pt plans to shoot himself, or overdose on heroin or walk into traffic. Pt 5150 written by police after pt was kicked out of a hotel. PT has hx of methamphetamine abuse. Assessment What has happened this shift: Received pt in bed sleeping w/o distress at beginning of shift. Pleasant and cooperative in conversation and responded well to encouragement to attend groups. Talked about working for the [employer] in an unpaid status and is here to eliminate the devil and his plans. Reports no longer having a desire to drink alcohol and has not done so in months. Pt. Continues to report he would like to go to [place] to do rehab. Pt. reports he would not live with relatives, but has a cousin there who could help him with Appointments and finding a room.Napped during free time. Minimal contact with other pts. Appeared to enjoy dialogue with this staff. S/I, H/I: Pt denies A/VH: Pt denies Sleep: napped x2 ADL's: Independent Group attendance: Yes Were meds taken: Yes Any med S/E: None noted or reported today Mental Status Exam Appearance: Wearing green scrubs and nonskid socks Eye contact: Good Behavior: cooperative, isolates in his room Speech: Soft spoken slow speech with southern accent Mood: continues to feel depressed and anxious, feeling hopeless Affect: Blunted Thought process: delusional Thought Content: discharge plans Cognition: A&Ox4 Insight: Poor Judgment: Poor Interventions PRN's used: None Therapeutic interventions: 1:1 assessment, encouragement to express thoughts and feelings, active listening, establishment of rapport, medication administration/education/monitoring, encouragement to attend groups, Q15 min safety checks. Restraints/seclusion/emergency medication: None Justification of Continued Inpatient Treatment: Pt needs crisis stabilization & medication adjustment in a safe and therapeutic environment. Pt is currently homeless and at high risk for relapse on methamphetamine, he is paranoid and delusional with intermittent SI, he has no viable plan for food, clothing or fdc.
[2018-06-02 20:00] VITALS: BP 126/56
[2018-06-02] MEDS: miconazole nitrate cream 57gm TP SCH (20:46)
[2018-06-02] MEDS: LORazepam 1 MG tablet PO PRN (22:23)
--- NOTE | 2018-06-03 00:48 | NUR ---
Nursing Progress Note Legal hold: Voluntary Client on voluntary/involuntary status for being a danger to himself Report received from nurse with use of ABEBA Saxena RN Why are they here: The patient was admitted on 05/26 from the ER after he was taken there by police on a 5150 for being a danger to himself. He reportedly had been kicked out of his hotel and then made suicidal statements with multiple plans. He has been abusing amphetamines, etoh and THC and wishes to go into a rehab program. Assessment What has happened this shift: The patient primarily stayed in his room for the majority of the shift. He did however get up for the evening snack, to shower and to walk briefly in the hallway. He stated he had a "fair" day. He stated that his mood has been up and down during the day. When asked if he felt he was getting better here in the hospital he stated that he did not know if he was or not. He did state he feels safe and comfortable here in the hospital but also seems guarded about the information he shares. He made the cryptic and vague comment that he was worrying about something happening to him when he was not in the hospital. He denies A/V hallucinations. He readily admits to D&A abuse and stated that he might possibly go into a rehab after discharge. He denies cravings for substances. He denies suicidal thoughts at the time of the assessment but added, "it comes and goes" S/I, H/I: reports suicidal thoughts come and go A/VH: he denies A/V hallucinations but is guarded Sleep: Difficulty falling asleep and has asked for ativan for the past two nights after he was not able to fall asleep on his own ADL's: The patient showered this evening Group attendance: NA Were meds taken: The patient is medication compliant Any med S/E he did have some pill rolling unknown if chronic Mental Status Exam Appearance: Appears older than his stated age. Dressed appropriately for the unit Eye contact: Minimal Behavior: Quiet, withdrawn Speech: coherent, monotone, minimal verbal replies Mood: depressed Affect: blunted Thought process: Difficult to fully assess because he is guarded. Seems internally preoccupied Thought Content: paranoia that something is going to happen to him, Cognition:Alert Insight: Poor Judgment: Poor Interventions PRN's used: Ativan Therapeutic interventions: One to one with the patient to assess severity of thought disorder and self harm risk. He remains on q 15 minute safety checks. Restraints/seclusion/emergency medication:[] Justification of Continued Inpatient Treatment: The patient has no realistic plan for food, longterm or clothing at this time but does seem to be agreeable to rehab after discharge. He continues to report suicidal thoughts that come and go.
[2018-06-03] MEDS: lisinopril 20mg tablet PO SCH (08:00)
[2018-06-03 08:12] VITALS: BP 94/70
[2018-06-03] MEDS: neomy sulf/bacitrac zn/polymixin b oint 14.2 gm tube TP SCH ×2 (08:45→20:52)
[2018-06-03] MEDS: atorvastatin 10mg tablet PO SCH (08:46)
[2018-06-03] MEDS: tamsulosin 0.4mg capsule PO SCH (08:46)
[2018-06-03] MEDS: FLUoxetine 20mg capsule PO SCH (08:46)
[2018-06-03] MEDS: pantoprazole 40mg Tablet.DR PO SCH (08:46)
[2018-06-03] MEDS: valacyclovir 500mg tablet PO SCH (08:46)
[2018-06-03] MEDS: PALIPERIDONE 3 MG TAB.ER.24 PO SCH (08:49)
[2018-06-03] MEDS: amLODIPine 5mg tablet PO SCH (08:49)
[2018-06-03] MEDS: ibuprofen tablet 400 MG TABLET PO SCH ×3 (08:50→20:52)
[2018-06-03] MEDS: lamoTRIgine 25mg tablet PO SCH ×2 (08:50→20:52)
[2018-06-03] MEDS: nicotine 21mg patch - 24 hr TD SCH (08:53)
[2018-06-03] MEDS ORDERED: PALIPERIDONE 3 MG TAB.ER.24 PO ONE (11:30)
--- NOTE | 2018-06-03 15:45 | NUR ---
Nursing Progress Note: Legal hold: N/A Client on voluntary status Report received with use of SBAR from: LENORE Chan Why are they here: Pt is admitted for depression and suicidal ideation. Pt states his medication is not working and he wants to kill himself. Pt plans to shoot himself, or overdose on heroin or walk into traffic. Pt 5150 written by police after pt was kicked out of a hotel. PT has hx of methamphetamine abuse. Assessment What has happened this shift: Received pt in bed sleeping w/o distress at beginning of shift. Attended meals and took meds. 0800 lisinopril held due to systolic BP 94. Dr Alexander notified. Continues to be pleasant and cooperative in conversation. Attended groups and participated. Continues to endorse Delusions. Talked about feeling more comfortable with the potential discharge plan to the [facility] in May and day program involvement. Reports left foot pain and given tylenol prn. Took short naps between meals. Enjoys talking with staff and expressing himself. S/I, H/I: Pt denies A/VH: Pt denies Sleep: napped x2 ADL's: Independent Group attendance: Yes Were meds taken: Yes Any med S/E: None noted or reported today Mental Status Exam Appearance: Wearing green scrubs and nonskid socks Eye contact: Good Behavior: cooperative, isolates in his room Speech: Soft spoken slow speech with southern accent Mood: continues to feel depressed and anxious, feeling hopeless Affect: Blunted Thought process: delusional Thought Content: discharge plans Cognition: A&Ox4 Insight: Poor Judgment: Poor Interventions PRN's used: Tylenol X1 Therapeutic interventions: 1:1 assessment, encouragement to express thoughts and feelings, active listening, establishment of rapport, medication administration/education/monitoring, encouragement to attend groups, Q15 min safety checks. Restraints/seclusion/emergency medication: None Justification of Continued Inpatient Treatment: Pt needs crisis stabilization & medication adjustment in a safe and therapeutic environment. Pt is currently homeless and at high risk for relapse on methamphetamine, he is paranoid and delusional with intermittent SI, he has no viable plan for food, clothing or assisted.
[2018-06-03] MEDS: acetaminophen 325mg tablet PO PRN (15:58)
[2018-06-03] MEDS ORDERED: potassium Cl 20 mEq SR tablet PO PRN ×2 (17:50)
[2018-06-03] MEDS ORDERED: potassium Cl 40MEQ/NS 500ml 500 ML IV PRN ×2 (17:50)
[2018-06-03 20:21] VITALS: BP 121/74
[2018-06-03] MEDS: zolpidem 5mg tablet PO PRN (20:52)
[2018-06-03] MEDS: miconazole nitrate cream 57gm TP SCH (20:52)
--- NOTE | 2018-06-03 22:36 | NUR ---
Nursing Progress Note Legal hold: Voluntary Client on voluntary/involuntary status for being a danger to himself Report received from nurse with use of ABEBA Saxena RN Why are they here: The patient was admitted on 05/26 from the ER after he was taken there by police on a 5150 for being a danger to himself. He reportedly had been kicked out of his hotel and then made suicidal statements with multiple plans. He has been abusing amphetamines, etoh and THC and wishes to go into a rehab program. Assessment: The patient was up and out of his room for the majority of the evening sitting and watching TV with peers. He was friendly and relaxed when approached for the evening assessment. He stated that his mood was "fair" this evening but stated he felt that during the day he had some "ups and downs" He was focused on discharge plans and was asking questions about [facility]. He stated he had a lot to consider because of all the factors that were playing into the decision but when asked to elaborate he declined. He denies anxiety. He denies medication side effects. S/I, H/I: reports suicidal thoughts come and go A/VH: he denies A/V hallucinations but is guarded Sleep: Difficulty falling asleep and has asked for ativan for the past two nights after he was not able to fall asleep on his own ADL's: The patient showered this evening Group attendance: NA Were meds taken: The patient is medication compliant Any med S/E he did have some pill rolling unknown if chronic Mental Status Exam Appearance: Appears older than his stated age. Dressed appropriately for the unit Eye contact: Fair Behavior: Quiet, withdrawn Speech: coherent, spontaneous, normal rate and volume Mood: "fair" Affect: normal range of affect Thought process: Logical, coherent Thought Content: trying to work out discharge to [facility] Cognition:Alert Insight: Impaired Judgment: Impaired Interventions PRN's used: Ambien Therapeutic interventions: One to one with the patient to assess severity of thought disorder and self harm risk. He remains on q 15 minute safety checks. Restraints/seclusion/emergency medication:[] Justification of Continued Inpatient Treatment: He continues to report suicidal thoughts that come and go.
[2018-06-04 07:15] LABS: POTASSIUM 4.8 MMOL/L (3.5-5.1)
[2018-06-04 07:56] VITALS: BP 112/68
[2018-06-04] MEDS: neomy sulf/bacitrac zn/polymixin b oint 14.2 gm tube TP SCH ×2 (08:00→20:00)
[2018-06-04] MEDS: nicotine 21mg patch - 24 hr TD SCH (08:14)
[2018-06-04] MEDS: FLUoxetine 20mg capsule PO SCH (08:14)
[2018-06-04] MEDS: lisinopril 20mg tablet PO SCH (08:15)
[2018-06-04] MEDS: pantoprazole 40mg Tablet.DR PO SCH (08:15)
[2018-06-04] MEDS: atorvastatin 10mg tablet PO SCH (08:15)
[2018-06-04] MEDS: tamsulosin 0.4mg capsule PO SCH (08:16)
[2018-06-04] MEDS: lamoTRIgine 25mg tablet PO SCH ×2 (08:16→20:28)
[2018-06-04] MEDS: ibuprofen tablet 400 MG TABLET PO SCH ×3 (08:16→20:28)
[2018-06-04] MEDS: PALIPERIDONE 3 MG TAB.ER.24 PO SCH (08:16)
[2018-06-04] MEDS: LORazepam 1 MG tablet PO PRN ×2 (09:29→18:46)
[2018-06-04] MEDS ORDERED: propranolol 10mg tablet PO ONE (10:05)
--- NOTE | 2018-06-04 10:24 | NUR ---
ORDER FOR PROPRANOLOL The patient is complaining of akathisia symptoms. Order for propranolol obtained from Dr. Alexander. Patient was advised regarding blood pressure and education provided on hyptensive symptoms. Patient stated he understood. B/P=103/67, HR=84 Addendum: 06/04/18 at 1046 by Sarah Monte RN Hypotensive symptoms
--- NOTE | 2018-06-04 14:52 | NUR ---
NURSING PROGRESS NOTE Legal hold: N/A (Client on voluntary status) Report received with use of SBAR from: LENORE Chan Why are they here: Pt is admitted for depression and suicidal ideation. Pt states his medication is not working and he wants to kill himself. Pt plans to shoot himself, or overdose on heroin or walk into traffic. Pt 5150 written by police after pt was kicked out of a hotel. PT has hx of methamphetamine abuse. Assessment What has happened this shift: The patient was asleep at change of shift. Got up for breakfast and is med compliant. During morning c/o akathisia (restless, can't hold still) and believes is from his medications. Dr. Alexander notified and order fro propranolol received and administered which patient reported later was quite helpful and allowed him to fall asleep. he did become paranoid about possibly having the police come here because he's "been bad with drugs." Patient was reassured and discharge continues to be [facility] or possibly [facility]. the patient had a better and more relaxed afternoon. He does have some passive SI at times and then can be hopeful for the future. Labs wnl. S/I, H/I: some passive SI at times. A/VH: Pt denies Sleep: napped x2 ADL's: Independent Group attendance: Yes Were meds taken: Yes Any med S/E: Akathisia Mental Status Exam: Appearance: WNL Eye contact: Good Behavior: cooperative, isolates in his room Speech: Soft spoken wnl Mood: continues to feel depressed and anxious Affect: Blunted Thought process: paranoid at times Thought Content: discharge plans Cognition: A&Ox4 Insight: Poor Judgment: Poor Interventions: PRN's used: Ativan and propranolol Therapeutic interventions: 1:1 assessment, encouragement to express thoughts and feelings, active listening, establishment of rapport, medication administration/education/monitoring, encouragement to attend groups, Q15 min safety checks. Restraints/seclusion/emergency medication: None Justification of Continued Inpatient Treatment: Pt needs crisis stabilization & medication adjustment in a safe and therapeutic environment. Pt is currently homeless and at high risk for relapse on methamphetamine, he is paranoid and delusional with intermittent SI, he has no viable plan for food, clothing or detention.
[2018-06-04] MEDS ORDERED: propranolol LA 60 MG cap.SA.24H PO PRN (17:45)
[2018-06-04 19:00] VITALS: BP 106/79
[2018-06-04] MEDS: propranolol 10mg tablet PO PRN (19:45)
[2018-06-04] MEDS: zolpidem 5mg tablet PO PRN (20:28)
[2018-06-04] MEDS: miconazole nitrate cream 57gm TP SCH (21:00)
--- NOTE | 2018-06-04 22:42 | NUR ---
Nursing Progress Note Legal hold: Voluntary Client on voluntary/involuntary status for being a danger to himself Report received from nurse with use of ABEBA Sheehan RN Why are they here: The patient was admitted on 05/26 from the ER after he was taken there by police on a 5150 for being a danger to himself. He reportedly had been kicked out of his hotel and then made suicidal statements with multiple plans. He has been abusing amphetamines, etoh and THC and wishes to go into a rehab program. Assessment: Pt paces the halls at beginning of shift and requests ativan and propanolol for anxiety. Pt given both medications, which he reported "helped." Pt refused the antifungal cream for his foot, but accepted the antibiotic ointment. 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 medication education. He remains on q 15 minute safety checks. Restraints/seclusion/emergency medication:NA Justification of Continued Inpatient Treatment: He continues to report suicidal thoughts that "come and go."
[2018-06-05 08:00] VITALS: BP 116/61
[2018-06-05] MEDS: neomy sulf/bacitrac zn/polymixin b oint 14.2 gm tube TP SCH ×2 (08:00→20:00)
[2018-06-05] MEDS: atorvastatin 10mg tablet PO SCH (08:27)
[2018-06-05] MEDS: nicotine 21mg patch - 24 hr TD SCH (08:27)
[2018-06-05] MEDS: tamsulosin 0.4mg capsule PO SCH (08:28)
[2018-06-05] MEDS: FLUoxetine 20mg capsule PO SCH (08:28)
[2018-06-05] MEDS: lamoTRIgine 25mg tablet PO SCH ×2 (08:28→20:33)
[2018-06-05] MEDS: ibuprofen tablet 400 MG TABLET PO SCH ×3 (08:28→20:32)
[2018-06-05] MEDS: pantoprazole 40mg Tablet.DR PO SCH (08:28)
[2018-06-05] MEDS: PALIPERIDONE 3 MG TAB.ER.24 PO SCH (08:29)
[2018-06-05] MEDS: lisinopril 20mg tablet PO SCH (08:29)
[2018-06-05] MEDS: propranolol 10mg tablet PO PRN ×2 (08:30→19:40)
[2018-06-05] MEDS: LORazepam 1 MG tablet PO PRN (09:27)
[2018-06-05 09:42] LABS: MAGNESIUM 1.6 MG/DL (1.5-2.4); POTASSIUM 4.3 MMOL/L (3.5-5.1)
--- NOTE | 2018-06-05 15:23 | NUR ---
NURSING PROGRESS NOTE Legal hold: N/A (Client on voluntary status) Report received with use of SBAR from: LENORE Romero Why are they here: Pt is admitted for depression and suicidal ideation. Pt states his medication is not working and he wants to kill himself. Pt plans to shoot himself, or overdose on heroin or walk into traffic. Pt 5150 written by police after pt was kicked out of a hotel. PT has hx of methamphetamine abuse. Assessment What has happened this shift: The patient was asleep at change of shift. Got up for breakfast and is med compliant. During morning c/o akathisia (restless, can't hold still) and believes he is not getting enough Ativan or Inderal. He perseverates on this topic all morning and is paranoid that the MD will not address his discomfort. Repeats that the "government is out to get me." PRN propranolol was given with breakfast. An hour later patient still having significant symptoms of akathisia and requested his once per day Ativan which was provided. Patient was able to sleep for awhile and restlessness subsided. During the afternoon went to groups, ate and napped. Denies suicidal thoughts today. S/I, H/I: Denies A/VH: Pt denies Sleep: napped x2 ADL's: Independent Group attendance: Yes Were meds taken: Yes Any med S/E: Akathisia Mental Status Exam: Appearance: WNL Eye contact: Good Behavior: cooperative, isolates in his room Speech: Soft spoken wnl Mood: continues to feel depressed and anxious Affect: Blunted Thought process: paranoid at times Thought Content: discharge plans Cognition: A&Ox4 Insight: Poor Judgment: Poor Interventions: PRN's used: Ativan and propranolol Therapeutic interventions: 1:1 assessment, encouragement to express thoughts and feelings, active listening, establishment of rapport, medication administration/education/monitoring, encouragement to attend groups, Q15 min safety checks. Restraints/seclusion/emergency medication: None Justification of Continued Inpatient Treatment: Pt needs crisis stabilization & medication adjustment in a safe and therapeutic environment. Pt is currently homeless and at high risk for relapse on methamphetamine, he is paranoid and delusional with intermittent SI, he has no viable plan for food, clothing or mcfp.
[2018-06-05] MEDS ORDERED: propranolol 10mg tablet PO ONE (16:15)
[2018-06-05] MEDS: zolpidem 5mg tablet PO PRN (20:32)
[2018-06-05 20:50] VITALS: BP 106/69
[2018-06-05] MEDS: miconazole nitrate cream 57gm TP SCH (21:00)
--- NOTE | 2018-06-05 23:43 | NUR ---
Nursing Progress Note Legal hold: Voluntary Client on voluntary/involuntary status for being a danger to himself Report received from nurse with use of ABEBA Sheehan RN Why are they here: The patient was admitted on 05/26 from the ER after he was taken there by police on a 5150 for being a danger to himself. He reportedly had been kicked out of his hotel and then made suicidal statements with multiple plans. He has been abusing amphetamines, etoh and THC and wishes to go into a rehab program. Assessment: Pt requests propranolol for anxiety at beginning of shift. He states "they upped my propranolol and I think it is helping." He did not request any Ativan. Pt was in a pleasant mood this shift and smiles often at machine sign writer and sits in community room and watches TV. S/I, H/I: does not make any suicidal statements this shift. A/VH: denies Sleep: see sleep assessment notation ADL's: self Group attendance: night shift supervisor, no groups Were meds taken: The patient is medication compliant Any med S/E : none reported or observed this shift Mental Status Exam Appearance: wears green scrubs, clean WNL Eye contact: Fair Behavior: paces, talkative at times Speech: normal rate and volume Mood: anxious at times Affect: upbeat Thought process: Linear Thought Content: WNL Cognition:Alert Insight: Impaired Judgment: Impaired Interventions PRN's used: Ambien, propanolol Therapeutic interventions: One to one with the patient to assess severity of thought disorder and self harm risk. medication education. He remains on q 15 minute safety checks. Restraints/seclusion/emergency medication:NA Justification of Continued Inpatient Treatment: He continues to report suicidal thoughts that "come and go."
[2018-06-06] MEDS: propranolol 10mg tablet PO PRN ×2 (07:09→12:34)
[2018-06-06 07:19] LABS: MAGNESIUM 1.8 MG/DL (1.5-2.4); POTASSIUM 4.4 MMOL/L (3.5-5.1)
[2018-06-06 08:00] VITALS: BP 102/65
[2018-06-06] MEDS: PALIPERIDONE 3 MG TAB.ER.24 PO SCH (08:00)
[2018-06-06] MEDS: lisinopril 20mg tablet PO SCH (08:00)
[2018-06-06] MEDS: neomy sulf/bacitrac zn/polymixin b oint 14.2 gm tube TP SCH (08:00)
[2018-06-06] MEDS: LORazepam 1 MG tablet PO PRN (08:07)
[2018-06-06] MEDS: tamsulosin 0.4mg capsule PO SCH (08:20)
[2018-06-06] MEDS: ibuprofen tablet 400 MG TABLET PO SCH ×2 (08:20→12:34)
[2018-06-06] MEDS: lamoTRIgine 25mg tablet PO SCH (08:20)
[2018-06-06] MEDS: atorvastatin 10mg tablet PO SCH (08:20)
[2018-06-06] MEDS: pantoprazole 40mg Tablet.DR PO SCH (08:20)
[2018-06-06] MEDS: FLUoxetine 20mg capsule PO SCH (08:21)
[2018-06-06] MEDS: nicotine 21mg patch - 24 hr TD SCH (08:24)
[2018-06-06] MEDS ORDERED: FLUO20CA39 PO (17:44)
[2018-06-06] MEDS ORDERED: IBUP-1986 PO (17:44)
[2018-06-06] MEDS ORDERED: PANT40TA4 PO (17:44)
[2018-06-06] MEDS ORDERED: LISI40TA4 PO (17:44)
[2018-06-06] MEDS ORDERED: ZOLP10TA5 PO (17:44)
[2018-06-06] MEDS ORDERED: LAMO25TA94 PO (17:44)
[2018-06-06] MEDS ORDERED: ATOR10TA87 PO (17:44)
[2018-06-06] MEDS ORDERED: NEOM28.37 TP (17:44)
[2018-06-06] MEDS ORDERED: FLO0.4C PO (17:44)
--- NOTE | 2018-06-06 18:54 | NUR ---
NURSING DISCHARGE NOTE: Pt discharged the unit on 06/06/2018 at 1840. Pt's paperwork was went over with him, he verbalized understanding and signed all needed areas. Pt received all his belongings and items from the safe. Pt was in a good mood at discharge, making jokes and smiling. Pt is in stable medical condition, and offers no complaints at this time. Pt is taking the 1900 bus that stops out in front of the hospital. He plans to stay at the [facility].
== END 2018-06-06 18:40 | disposition home or self-care (01) | DRG 885 ==
LOC: ADULT MH 13:27
PROVIDERS: ADMIT Psychiatry & Neurology Psychiatry; ATTEND Psychiatry & Neurology Psychiatry
DX: F20.9 Schizophrenia, unspecified (principal); R45.851 Suicidal ideations; F15.10 Other stimulant abuse, uncomplicated; F10.10 Alcohol abuse, uncomplicated; E87.6 Hypokalemia; B00.1 Herpesviral vesicular dermatitis; E78.00 Pure hypercholesterolemia, unspecified; F32.9 Major depressive disorder, single episode, unspecified; K21.9 Gastro-esophageal reflux disease without esophagitis; I10 Essential (primary) hypertension; G89.29 Other chronic pain; F17.200 Nicotine dependence, unspecified, uncomplicated; N40.0 Benign prostatic hyperplasia without lower urinary tract symptoms; F12.90 Cannabis use, unspecified, uncomplicated; Y90.9 Presence of alcohol in blood, level not specified; Z59.0 Homelessness; Z83.3 Family history of diabetes mellitus; Z80.0 Family history of malignant neoplasm of digestive organs; Z71.6 Tobacco abuse counseling
CPT/HCPCS: 36415; 80061; 83036; 83735; 84132; 87070; 99285

== ENCOUNTER 2018-06-29 18:27 | Emergency (ER) | payer MEDICARE, MEDICAID ==
[~2018-06-29] VITALS: Ht 165.1 cm; Wt 70.0 kg
[~2018-06-29 18:27] MED LIST changes: -AMLO-94 PO; +IBUP-1986 PO; -LIDO20SO16 PO; +LISI40TA4 PO; +NEOM28.37 TP; -PANT-47 PO; -PANT20TA2 PO; +PANT40TA4 PO; -VALA10002 PO; +ZOLP10TA5 PO
[2018-06-29 18:44] VITALS: BP 175/106
--- NOTE | 2018-06-29 18:59 | NUR ---
PT HERE FOR OK TO GO TO [place] TO RECOVER FROM ETOH, METH
[2018-06-29] MEDS ORDERED: LORA1TAB PO (19:15)
[2018-06-29] MEDS ORDERED: GABA300C PO (19:15)
[2018-06-29] MEDS ORDERED: iohexol 350MG/ML 100ml bottle IV ONE (21:07)
== END 2018-06-29 19:23 | disposition home or self-care (01) ==
LOC: ER 18:28
DX: F19.10 Other psychoactive substance abuse, uncomplicated (principal); F12.90 Cannabis use, unspecified, uncomplicated; F15.90 Other stimulant use, unspecified, uncomplicated; E78.00 Pure hypercholesterolemia, unspecified; I10 Essential (primary) hypertension; K21.9 Gastro-esophageal reflux disease without esophagitis; G89.29 Other chronic pain; Z56.0 Unemployment, unspecified; Z79.899 Other long term (current) drug therapy
CPT/HCPCS: 99283; Q9967

== ENCOUNTER 2018-07-13 18:46 | Inpatient (IN) | payer MEDICARE, MEDICAID ==
[~2018-07-13] VITALS: Ht 162.6 cm; Wt 69.8 kg
[~2018-07-13 18:46] MED LIST changes: +GABA300C PO; -LISI40TA4 PO; -ZOLP10TA5 PO
[2018-07-14] MEDS ORDERED: LORazepam 1 MG tablet PO PRN (11:55)
[2018-07-14] MEDS ORDERED: loperamide 2mg capsule PO PRN (11:55)
[2018-07-14] MEDS ORDERED: NICOTINE POLACRILEX 2 MG LOZENGE MM PRN (11:55)
[2018-07-14] MEDS ORDERED: hydrOXYzine 25 MG tablet PO PRN (11:55)
[2018-07-14] MEDS ORDERED: mag hydrox/Alum hydrox/simeth 30ml oral suspension PO PRN (11:55)
[2018-07-14] MEDS ORDERED: tuberculin, purif. prot. deriv. 5 units/0.1ml ID ONE (11:55)
[2018-07-14] MEDS ORDERED: acetaminophen 325mg tablet PO PRN ×2 (11:55)
[2018-07-14] MEDS ORDERED: magnesium hydroxide 30ml (MOM) UD suspension PO PRN (11:55)
[2018-07-14] MEDS ORDERED: FLUO40CA10 PO (12:05)
[2018-07-14] MEDS ORDERED: LISI10TA4 PO (12:05)
[2018-07-14] MEDS ORDERED: ATOR20TA PO (12:05)
[2018-07-14] MEDS ORDERED: GABA-532 PO (12:05)
[2018-07-14] MEDS ORDERED: PANT-47 PO (12:05)
[2018-07-14] MEDS ORDERED: OLAN5TAB5 PO (12:05)
[2018-07-14] MEDS ORDERED: THIA100T73 PO (12:05)
[2018-07-14 12:22] VITALS: BP 125/75
--- NOTE | 2018-07-14 12:53 | NUR ---
Admit note: Pt admitted by Dr Alexander for depression. PT admitted to the floor at 1115. Pt transported [facility] by county vehicle and escorted up by security. Pt arrives with large suitcase, duffle back, back pack and plastic bag of belongings. Pt has original 5150 stating pt presents depressed, hopeless, suicidal. Client has plan to walk into traffic. Pt attempted suicide by overdose a few month ago. Client has prior suicide attempts out of state. Pt unable to formulate a safety plan. Pt has history of alcoholism, methamphetamine abuse, schizophrenia, bipolar. Med rec completed. Pt oriented to the unit. PT advised of his 5150 72 hour hold starting today at 1115.
[2018-07-14] MEDS ORDERED: OLANZapine 5mg rapidly disint. tablet PO PRN (13:20)
[2018-07-14] MEDS: FLUoxetine 20mg capsule PO SCH (14:00)
[2018-07-14] MEDS ORDERED: gabapentin 300mg capsule PO SCH (16:00)
[2018-07-14] MEDS: ibuprofen tablet 400 MG TABLET PO SCH (17:01)
[2018-07-14 20:00] VITALS: BP 121/83
[2018-07-14] MEDS ORDERED: gabapentin 400mg capsule PO SCH (20:15)
[2018-07-14] MEDS: tamsulosin 0.4mg capsule PO SCH (20:26)
[2018-07-14] MEDS: atorvastatin 20mg tablet PO SCH (20:26)
[2018-07-14] MEDS: gabapentin 300mg capsule PO SCH (20:26)
--- NOTE | 2018-07-14 23:27 | NUR ---
Nursing Progress Note:[] Legal hold:5150 Client on voluntary/involuntary status for DTS Report received from nurse with use of ABEBA Boucher RN Why are they here:The patient was admitted from [facility] ER 5150 for being a danger to himself. He is a chronic methamphetamine use and etoh use. He is homeless. Presented as increasingly depressed and feeling suicidal with a plan to walk into traffic. Assessment What has happened this shift:The patient isolated to his bed and appeared to be sleeping. He did get up briefly for snack. He did not set up or open his eyes for the assessment but mumbled his answers or gave very brief answers. He stated he was feeling "not to good" S/I, H/I: He reports continued suicidal thoughts "a lot" with a plan to "walk [place] the [place]" He reports frequent methamphetamine use A/VH: Denies Sleep: Fatiqued ADL's: no shower for several days Group attendance: No PM group Were meds taken: None reported or observed Any med S/E none reported Mental Status Exam Appearance: appropriately dressed Eye contact: minimal Behavior: withdrawn and isolating to his room Speech: minimal Mood: depressed Affect: blunted Thought process: unable to assess fully 2nd to patient's minimal verbal responses. Was able to answer all questions asked of him Thought Content: suicidal thoughts Cognition: Alert oriented Insight:impaired Judgment: impaired Interventions: One to one with the patient to assess severity of self harm risk. Reviewed plan of care. PRN's used: None Therapeutic interventions: Encouraged patient to shower Restraints/seclusion/emergency medication: NA Justification of Continued Inpatient Treatment: The patient presents as a danger to himself with suicidal thoughts with a plan to walk out into traffic. He was not able to verbalize a reason to live or supportive people in his life
[2018-07-15 07:20] VITALS: BP 128/84
[2018-07-15 07:27] LABS: CHOL/HDL RATIO 2.4 (0.00-4.99); CHOLESTEROL 118 MG/DL (0-200); HDL CHOLESTEROL 49 MG/DL (35-60); LDL CHOLESTEROL 57 MG/DL (50-100); TRIGLYCERIDES 63 MG/DL (20-135)
[2018-07-15] MEDS: nicotine 21mg patch - 24 hr TD SCH (08:29)
[2018-07-15] MEDS: FLUoxetine 20mg capsule PO SCH (08:29)
[2018-07-15] MEDS: ibuprofen tablet 400 MG TABLET PO SCH ×3 (08:30→16:35)
[2018-07-15] MEDS: thiamine 100mg tablet PO SCH (08:30)
[2018-07-15] MEDS: gabapentin 300mg capsule PO SCH ×3 (08:30→21:05)
[2018-07-15] MEDS: lisinopril 10 MG tablet PO SCH (08:31)
[2018-07-15] MEDS: pantoprazole 40mg Tablet.DR PO SCH (08:31)
--- NOTE | 2018-07-15 15:50 | NUR ---
Nursing Progress Note: Legal hold:5150 Client on voluntary/involuntary status for DTS Report received from nurse with use of ABEBA Tolbert RN Why are they here:The patient was admitted from [facility] ER 5150 for being a danger to himself. He is a chronic methamphetamine use and etoh use. He is homeless. Presented as increasingly depressed and feeling suicidal with a plan to walk into traffic. Assessment What has happened this shift: The patient slept all day except for meals and brief interaction with nurse for medications. He is depressed and irritable. Flat, sad affect. Reports suicidal thoughts of walking out into traffic. Not wanting to interact or cooperate with assessment. Sleepy and barely answering questions. S/I, H/I: He reports continued suicidal thoughts A/VH: Denies Sleep: Yes ADL's: needs to shower Group attendance: No Were meds taken: yes Any med S/E none reported Mental Status Exam Appearance: appropriately dressed Eye contact: minimal Behavior: withdrawn and isolating to his room Speech: minimal Mood: depressed Affect: blunted Thought process: unable to assess fully 2nd to patient's minimal verbal responses. Thought Content: suicidal thoughts Cognition: Alert oriented Insight:impaired Judgment: impaired Interventions: PRN's used: None Therapeutic interventions: established rapport, 1:1 assessment,provided a safe and therapeutic environment, maintained q15m safety checks Restraints/seclusion/emergency medication: NA Justification of Continued Inpatient Treatment: The patient presents as a danger to himself with suicidal thoughts with a plan to walk out into traffic. He was not able to verbalize a reason to live or supportive people in his life
[2018-07-15 20:00] VITALS: BP 117/72
[2018-07-15] MEDS: tamsulosin 0.4mg capsule PO SCH (21:05)
[2018-07-15] MEDS: atorvastatin 20mg tablet PO SCH (21:05)
--- NOTE | 2018-07-16 00:37 | NUR ---
Nursing Progress Note: Legal hold: 5150 Client on voluntary/involuntary status for DTS Report received from nurse, Sissy GROVER, with use of SBAR Why are they here:The patient was admitted from [facility] ER 5150 for being a danger to himself. He is a chronic methamphetamine use and etoh use. He is homeless. Presented as increasingly depressed and feeling suicidal with a plan to walk into traffic. Assessment What has happened this shift: Pt was sleeping in bed at change of shift. During 1:1, pt asked what this RN needed but then softened and answered questions. Pt stated " I feel sad. People on the streets have been threatening to hurt me" Pt endorses SI with a plan "to walk into traffic." Pt inquired about food, "I'm just very tired and hungry. I can't eat enough." RN encouraged pt to attend groups in the day and pt stated " I need to go and learn how to help myself. I know. I'm just tired right now." Pt got up for snack then returned to his room to sleep. S/I, H/I: Denies HI, +SI with a plan to walk into traffic A/VH: Denies Sleep: See Sleep Hour Charting ADL's: Independent Group attendance: Y - HS Snack Were meds taken: Y Any med S/E: None reported, None observed Mental Status Exam Appearance: Wearing unit green scrubs and nonskid socks Eye contact: Intermittent Behavior: Sleeping in room, attending HS Snack Speech: Clear Mood: "Sad" Affect: Flat Thought process: Linear; pt presented current crisis in a logical manner, able to answer all questions appropriately Thought Content: suicidal thoughts, wanting to sleep and eat Cognition: A&Ox4 Insight: Poor to Fair Judgment: Poor Interventions: PRN's used: Tylenol Therapeutic interventions: Encouraged patient to attend HS snack and go to groups in the morning, medication administration and education,Q15 checks Restraints/seclusion/emergency medication: NA Justification of Continued Inpatient Treatment: The patient presents as a danger to himself with suicidal thoughts with a plan to walk out into traffic. He was not able to verbalize a reason to live or supportive people in his life.
[2018-07-16 07:38] VITALS: BP 104/70
[2018-07-16] MEDS: nicotine 21mg patch - 24 hr TD SCH (07:40)
[2018-07-16] MEDS: gabapentin 300mg capsule PO SCH ×3 (07:41→20:26)
[2018-07-16] MEDS: lisinopril 10 MG tablet PO SCH (07:41)
[2018-07-16] MEDS: lamoTRIgine 25mg tablet PO SCH (07:41)
[2018-07-16] MEDS: pantoprazole 40mg Tablet.DR PO SCH (07:41)
[2018-07-16] MEDS: FLUoxetine 20mg capsule PO SCH (07:41)
[2018-07-16] MEDS: lurasidone 20mg tablet PO SCH (07:41)
[2018-07-16] MEDS: thiamine 100mg tablet PO SCH (07:41)
[2018-07-16] MEDS: ibuprofen tablet 400 MG TABLET PO SCH ×3 (08:30→16:44)
--- NOTE | 2018-07-16 16:19 | NUR ---
Nursing Progress Note: Legal hold:5150 Client on voluntary/involuntary status for DTS Report received from nurse with use of ABEBA Tolbert RN Why are they here:The patient was admitted from [facility] ER 5150 for being a danger to himself. He is a chronic methamphetamine use and etoh use. He is homeless. Presented as increasingly depressed and feeling suicidal with a plan to walk into traffic. Assessment What has happened this shift: The patient was asleep at change of shift. He had to be encouraged to get up for every meal but while laying down in morning was saying "I need double portions of food" and "You people are not feeding me enough." He was reluctant to talk with nurse or allow for assessment. Barely answering questions and mumbling. Depressed, irritated mood with blunted affect. States he is having suicidal thoughts about walking into traffic. He is medication compliant, and states, "I just want to sleep." S/I, H/I: He reports continued suicidal thoughts A/VH: Denies Sleep: Yes ADL's: Self Group attendance: Yes, but only by strong encouragement and expectations. Were meds taken: yes Any med S/E none reported Mental Status Exam Appearance: appropriately dressed Eye contact: minimal Behavior: withdrawn and isolating to his room Speech: minimal Mood: depressed Affect: blunted Thought process: unable to assess fully 2nd to patient's minimal verbal responses. Thought Content: obtaining more food Cognition: Alert oriented Insight: poor Judgment: fair Interventions: PRN's used: None Therapeutic interventions: established rapport, 1:1 assessment,provided a safe and therapeutic environment, maintained q15m safety checks Restraints/seclusion/emergency medication: NA Justification of Continued Inpatient Treatment: The patient presents as a danger to himself with suicidal thoughts with a plan to walk out into traffic. He was not able to verbalize a reason to live or supportive people in his life
[2018-07-16 19:58] VITALS: BP 118/80
[2018-07-16] MEDS: tamsulosin 0.4mg capsule PO SCH (20:26)
[2018-07-16] MEDS: atorvastatin 20mg tablet PO SCH (20:26)
--- NOTE | 2018-07-17 01:06 | NUR ---
Nursing Progress Note: Legal hold:5150 Client on voluntary/involuntary status for DTS Report received from nurse with use of ABEBA Sheehan RN Why are they here:The patient was admitted from [facility] ER 5150 for being a danger to himself. He is a chronic methamphetamine use and etoh use. He is homeless. Presented as increasingly depressed and feeling suicidal with a plan to walk into traffic. Assessment What has happened this shift: At change of shift patient immediately expresses he is having anxiety. When talking to patient he expresses he he is having anxiety because "I'm worried they are going to take my money like last." "I was partying and stuff last time, and they took it." "I didn't think it was going to hit me so hard this time but it is." He expresses when talking about his current situation that his SI thoughts "They come and go.", then states "But I'm not thinking about it right this second.", but does confirm he is depressed over his current situation. He denies a plan to harm himself at this time. Patient mainly keeps to himself and isolates to his room after his assessment except for to obtain a snack. He is complaint with all his HS medications. S/I, H/I: He reports passive SI thoughts that come and go. Denies HI A/VH: Denies Sleep: Currently sleeping, see sleep assessment ADL's: Independent Group attendance: No groups this shift Were meds taken: Yes Any med S/Ep: None reported or observed Mental Status Exam Appearance: Appropriately dressed Eye contact: None Behavior: withdrawn and isolating to his room Speech: Low volume, mumbles Mood: Depressed, anxious Affect: blunted Thought process: Worried about losing his income Thought Content: Anxious over thoughts of losing his income Cognition: A&O x3 Insight: Poor Judgment: Fair Interventions: PRN's used: Zyprexa Therapeutic interventions: Established rapport, 1:1 assessment,provided a safe and therapeutic environment, maintained q15m safety checks Restraints/seclusion/emergency medication: NA Justification of Continued Inpatient Treatment: The patient presents as a danger to himself with suicidal thoughts with a plan to walk out into traffic. He was not able to verbalize a reason to live or supportive people in his life
[2018-07-17 08:00] VITALS: BP 130/82
[2018-07-17] MEDS ORDERED: FLUoxetine 20mg capsule PO SCH (08:00)
[2018-07-17] MEDS: lurasidone 20mg tablet PO SCH (08:04)
[2018-07-17] MEDS: nicotine 21mg patch - 24 hr TD SCH (08:04)
[2018-07-17 08:05] VITALS: BP_SYST 130
[2018-07-17] MEDS: pantoprazole 40mg Tablet.DR PO SCH (08:05)
[2018-07-17] MEDS: ibuprofen tablet 400 MG TABLET PO SCH ×2 (08:05→13:45)
[2018-07-17] MEDS: thiamine 100mg tablet PO SCH (08:05)
[2018-07-17] MEDS: gabapentin 300mg capsule PO SCH ×2 (08:05→13:45)
[2018-07-17] MEDS: lisinopril 10 MG tablet PO SCH (08:05)
[2018-07-17] MEDS: lamoTRIgine 25mg tablet PO SCH (08:05)
[2018-07-17] MEDS ORDERED: OLAN5TAB29 PO (12:20)
[2018-07-17] MEDS ORDERED: thiamine tablet PO (12:20)
[2018-07-17] MEDS ORDERED: tamsulosin capsule PO (12:20)
[2018-07-17] MEDS ORDERED: FLUO20CA22 PO (12:20)
[2018-07-17] MEDS ORDERED: LISI10TA4 PO (12:20)
[2018-07-17] MEDS ORDERED: ATOR20TA66 PO (12:20)
[2018-07-17] MEDS ORDERED: HYDR-3686 PO (12:20)
[2018-07-17] MEDS ORDERED: PANT40TA4 PO (12:20)
[2018-07-17] MEDS ORDERED: GABA300C PO (12:20)
[2018-07-17] MEDS ORDERED: LURA20TA PO (12:20)
--- NOTE | 2018-07-17 15:31 | NUR ---
Discharge Note: Pt dc'd to self at 1525. Discharge Instructions including medications reviewed with the patient and he verbalized understanding and signed. All belongings returned to the patient and he agreed he received all. According to the pt he bought himself an [place] way [employer] bus ticket to [place] which leaves today at 5:30 pm At time of discharge, pt denies a/v patterson and denies S.I. and was looking forward to getting back to [place].
== END 2018-07-17 15:25 | disposition short-term general hospital (02) | DRG 885 ==
LOC: EEVIPCON → ADULT MH 07-14 11:03
PROVIDERS: ADMIT Psychiatry & Neurology Psychiatry; ATTEND Family Medicine
DX: F25.1 Schizoaffective disorder, depressive type (principal); R45.851 Suicidal ideations; K21.9 Gastro-esophageal reflux disease without esophagitis; E78.5 Hyperlipidemia, unspecified; I10 Essential (primary) hypertension; F43.10 Post-traumatic stress disorder, unspecified; Z81.1 Family history of alcohol abuse and dependence; Z83.3 Family history of diabetes mellitus; Z80.0 Family history of malignant neoplasm of digestive organs; Z59.0 Homelessness; F15.10 Other stimulant abuse, uncomplicated; F17.210 Nicotine dependence, cigarettes, uncomplicated; F12.90 Cannabis use, unspecified, uncomplicated; Z79.899 Other long term (current) drug therapy; Z91.5 Personal history of self-harm
CPT/HCPCS: 36415; 80061; 87070; Q0177

== ENCOUNTER 2019-04-08 21:11 | Emergency (ER) | payer MEDICARE, MEDICAID ==
[~2019-04-08] VITALS: Ht 162.6 cm; Wt 71.0 kg
[~2019-04-08 21:11] MED LIST changes: -ATOR10TA87 PO; +ATOR20TA66 PO; +FLUO-167 PO; -FLUO20CA39 PO; +GABA-532 PO; +HYDR-3686 PO; -IBUP-1984 PO; -LAMO25TA94 PO; +LISI10TA4 PO; +LURA20TA PO; -NEOM28.37 TP; +OLAN5TAB29 PO; +tamsulosin capsule PO; +thiamine tablet PO
[2019-04-08 22:18] LABS: BASOPHILS # (AUTO) 0.1 X10'3 (0-0.2); BASOPHILS % (AUTO) 0.9 % (0-1); EOSINOPHILS # (AUTO) 0.6 X10'3 (0-0.9); EOSINOPHILS % (AUTO) 8.5 % (0-6); HEMATOCRIT 38.7 % (42.0-52.0); HEMOGLOBIN 13.1 g/dl (14.0-17.9); LYMPHOCYTES # (AUTO) 2.1 X10'3 (1.1-4.8); LYMPHOCYTES % (AUTO) 30.1 % (21-51); MEAN CORPUSCULAR HEMOGLOBIN 29.4 PG (27.0-31.0); MEAN CORPUSCULAR HGB CONC 33.9 g/dL (33.0-36.5); MEAN CORPUSCULAR VOLUME 86.6 FL (78-98); MEAN PLATELET VOLUME 6.8 FL (7.4-10.4); MONOCYTES # (AUTO) 0.9 X10'3 (0-0.9); MONOCYTES % (AUTO) 13.1 % (2-12); NEUTROPHILS # (AUTO) 3.2 X10'3 (1.8-7.7); NEUTROPHILS % (AUTO) 47.4 % (42-75); PLATELET COUNT 438 X10'3 (140-440); RED BLOOD COUNT 4.47 X10'6 (4.70-6.10); RED CELL DISTRIBUTION WIDTH 17.4 % (11.5-14.5); WHITE BLOOD COUNT 6.8 X10'3 (4.5-11.0)
[2019-04-08 22:31] LABS: ALANINE AMINOTRANSFERASE 28 U/L (12-78); ALBUMIN/GLOBULIN RATIO 1.1 (1.1-1.5); ALKALINE PHOSPHATASE 87 IU/L (46-116); ANION GAP 12 (8-16); ASPARTATE AMINO TRANSFERASE 35 U/L (10-37); BILIRUBIN,TOTAL 1.2 MG/DL (0.1-1.0); BLOOD UREA NITROGEN 27 MG/DL (7-18); BUN/CREATININE RATIO 37.5 (5.4-32.0); CALCIUM 9.5 MG/DL (8.5-10.1); CHLORIDE 105 MMOL/L (99-107); CREATININE 0.72 MG/DL (0.60-1.10); GLUCOSE 107 MG/DL (70-104); POTASSIUM 3.5 MMOL/L (3.5-5.1); SODIUM 142 MMOL/L (135-145); TOTAL CARBON DIOXIDE 24.8 MMOL/L (24-32); TOTAL PROTEIN 7.8 G/DL (6.4-8.2); eGFR > 90 ML/MIN
[2019-04-08 22:40] LABS: ETHANOL < 0.010 GM/DL (0.0-0.010)
[2019-04-08] MEDS ORDERED: UNABLE TO OBTAIN (23:23)
[2019-04-08 23:52] LABS: URINE AMPHETAMINE SCREEN POSITIVE (Neg); URINE BARBITUATE SCREEN NEGATIVE (Neg); URINE BENZODIAZEPINES SCREEN NEGATIVE (Neg); URINE CANNABINOID SCREEN POSITIVE (Neg); URINE COCAINE SCREEN NEGATIVE (Neg); URINE METHADONE SCREEN NEGATIVE (Neg); URINE OPIATE SCREEN NEGATIVE (Neg); URINE PHENCYCLIDINE SCREEN NEGATIVE (Neg)
--- NOTE | 2019-04-09 01:30 | NUR ---
Patient arrived in [place] at 0100. Pt. ambulated and was accompanied by LENORE Jean Baptiste. Pt was A&O x2. Pts speech is mumbled. Pt presents with a flat affect. Pt. has noticeable twitching of jaws and clenching of teeth. Pt has a history of methamphetamine use and reports he last used yesterday. Pt denies A/VH, but is observed talking to self and will say I wasnt talking to you. Pt only responds when spoken too and it is difficult to get a complete history. Pt. endorses SI and has a plan to overdose on a bottle of Seroquel. Pt. lives a the [place] and states that is where is medication is kept Pt states he has a history of Schizophrenia, GERD, HTN and BPH. Patient has a long scar on left anterior LE, pt states he has metal in his leg. Pt walks with an uneven gait. Pt. reports pain in bilateral hands. The becomes more agitated as the admit process continues.
[2019-04-09] MEDS ORDERED: haloperidol lactate 5mg/ml inj IM ONE (02:10)
[2019-04-09] MEDS ORDERED: LORazepam 2 mg/ml vial IM ONE (02:10)
--- NOTE | 2019-04-09 02:10 | NUR ---
Attempting to get admit information from patient, pt presents as agitated. Pt. denies A/VH, but this telegraphic typewriter operator observed pt responding to internal stimuli. Patient is in bed writhing, agitated "My fingers hurt why can't you help me!" The more information pt is asked the more agitated he is getting. Pt. laying in bed grunting, raising voice.
[2019-04-09] MEDS ORDERED: ATOR40TA7 PO (02:36)
[2019-04-09] MEDS ORDERED: AMLO2.5T2 PO (02:36)
[2019-04-09] MEDS ORDERED: QUET400T PO (02:36)
[2019-04-09] MEDS ORDERED: GABA-534 PO (02:36)
[2019-04-09] MEDS ORDERED: PANT40TA4 PO (02:36)
[2019-04-09] MEDS ORDERED: FLO0.4C PO (02:36)
--- NOTE | 2019-04-09 04:01 | NUR ---
Patient is sleeping quietly on his left side in bed.
--- NOTE | 2019-04-09 05:19 | NUR ---
Pt sleeping on his back, resting quietly. Respirations even and unlabored.
--- NOTE | 2019-04-09 06:34 | NUR ---
PT RESTING ON SIDE RR EQUAL AND UNLABORED
[2019-04-09] MEDS: gabapentin 400mg capsule PO SCH ×2 (08:28→20:41)
[2019-04-09] MEDS: amLODIPine 5mg tablet PO SCH (08:28)
[2019-04-09] MEDS: pantoprazole 40mg Tablet.DR PO SCH (08:28)
[2019-04-09] MEDS: tamsulosin 0.4mg capsule PO SCH (08:28)
[2019-04-09] MEDS: atorvastatin 20mg tablet PO SCH (08:28)
--- NOTE | 2019-04-09 08:43 | NUR ---
QUAN TO WAKE PT UP FOR AM MEDS. PT DECLINED BREAKFAST AT THIS TIME HE STATES HE WOULD LIKE TO SLEEP
--- NOTE | 2019-04-09 09:50 | NUR ---
PT CONTINUES RESTING ON RIGHT SIDE RR EQUEAL AND UNLABORED
--- NOTE | 2019-04-09 12:23 | NUR ---
pt resting on right side rr equal and unlabored
--- NOTE | 2019-04-09 13:30 | NUR ---
DARIEN FROM [facility] AT FOR EVAL.
--- NOTE | 2019-04-09 13:40 | NUR ---
PT EATING LUNCH STATES HES HUNGERY AND "THIS TASTES GREAT"
--- NOTE | 2019-04-09 14:00 | NUR ---
DARIEN FROM [facility] STATES PT WILL NOT "WAKE UP FOR QUESTIONS". BERNICE STATES HE WILL RETURN TO FINISH EVAL AT A LATER TIME
--- NOTE | 2019-04-09 16:30 | NUR ---
PT RESTING ON BACK RR EQUAL AND UNLABORED.
--- NOTE | 2019-04-09 16:42 | NUR ---
DARIEN AT BS FOR EVAL. PT AWAKE AND TALKING TO DARIEN
--- NOTE | 2019-04-09 18:33 | NUR ---
Assumed care of patient, pt. sitting up at bedside eating dinner at this time. Appears calm, rr even and unlabored.
--- NOTE | 2019-04-09 19:00 | NUR ---
Pt. ate 100% of his dinner and consuming adequate fluids. Returns back to sleep
--- NOTE | 2019-04-09 20:30 | NUR ---
Awoke pt. to administer HS medications, pt. cooperative however remains very drowsy. He continues to report S/I over the "past few days" with a plan to overdose on Seroquel. Pt. also endorses previous overdose attempt when he was [age] years old. He denies any A/V/VEGA at this time, however continues to report paranoid delusional thoughts. Pt. states, "People against God want to hurt me." Pt. returns immediately back to sleep, will continue to monitor.
[2019-04-09] MEDS: quetiapine 100mg tablet PO SCH (20:41)
--- NOTE | 2019-04-09 22:30 | NUR ---
Pt. sleeping at this time, laying on his left side, rr even and unlabored.
[2019-04-09] MEDS ORDERED: ibuprofen tablet 400 MG TABLET PO ONE (23:40)
--- NOTE | 2019-04-09 23:40 | NUR ---
Pt. c/o bilateral neuropathic pain in bilateral fingers, MD notified, and obtained oder for Motrin. Administered with a snack and will monitor.
--- NOTE | 2019-04-10 00:25 | NUR ---
Pt. asleep laying on his back at this time, rr even and unlabored.
--- NOTE | 2019-04-10 00:40 | NUR ---
relieving RN for break, pt is sleeping, resp even and unlabored
--- NOTE | 2019-04-10 02:30 | NUR ---
Pt. continues to sleep, laying on his rt side at this time, appears to be resting comfortably.
--- NOTE | 2019-04-10 04:30 | NUR ---
Pt. sleeping on his left side at this time, rr even and unlabored.
--- NOTE | 2019-04-10 05:57 | NUR ---
Pt. continues to sleep at this time, laying on his back with feet flat on the bed and knees elevated, rr remain even and unlabored.
--- NOTE | 2019-04-10 07:23 | NUR ---
resting quietly in bed
[2019-04-10] MEDS: atorvastatin 20mg tablet PO SCH (08:28)
[2019-04-10] MEDS: amLODIPine 5mg tablet PO SCH (08:28)
[2019-04-10] MEDS: tamsulosin 0.4mg capsule PO SCH (08:28)
[2019-04-10] MEDS: gabapentin 400mg capsule PO SCH ×2 (08:28→19:29)
[2019-04-10] MEDS: pantoprazole 40mg Tablet.DR PO SCH (08:28)
--- NOTE | 2019-04-10 08:45 | NUR ---
sitting up on side of bed eating breakfast. calm and cooperative. c/o pain in his hands 3-05/27 pain. Scheduled Gabapentin administered. pt states no other needs at this time.
--- NOTE | 2019-04-10 10:13 | NUR ---
resting quietly in bed.
--- NOTE | 2019-04-10 11:11 | NUR ---
resting quietly in bed.
--- NOTE | 2019-04-10 13:00 | NUR ---
sitting up in bed eating lunch, calm and cooperative.
--- NOTE | 2019-04-10 14:00 | NUR ---
sitting up in bed, asking for water, water provided. pt calm and cooperative.
--- NOTE | 2019-04-10 16:11 | NUR ---
resting quietly in bed.
--- NOTE | 2019-04-10 17:14 | NUR ---
pt calm and resting in bed. Plan for pt to go up to [facility] at somepoint this evening.
--- NOTE | 2019-04-10 18:46 | NUR ---
Pt is sitting up in bed eating his dinner. Electronic Typesetting Machine Operator asks how patient is feeling and he responds, "I don't feel like answering any more questions."
[2019-04-10] MEDS: quetiapine 100mg tablet PO SCH (19:29)
[2019-04-10 19:38] VITALS: BP 133/82
== END 2019-04-10 19:46 ==
LOC: ER 21:12
DX: R45.851 Suicidal ideations (principal); F32.9 Major depressive disorder, single episode, unspecified; E78.00 Pure hypercholesterolemia, unspecified; I10 Essential (primary) hypertension; K21.9 Gastro-esophageal reflux disease without esophagitis; G89.29 Other chronic pain; F12.90 Cannabis use, unspecified, uncomplicated; F15.90 Other stimulant use, unspecified, uncomplicated; F17.200 Nicotine dependence, unspecified, uncomplicated; Z59.0 Homelessness; Z56.0 Unemployment, unspecified; Z79.899 Other long term (current) drug therapy
CPT/HCPCS: 36415; 80053; 80305; 80320; 84443; 85025; 96372; 99285; J1630; J2060

== ENCOUNTER 2024-12-30 00:22 | Emergency (ER) | payer OTHER, MEDICAID ==
[~2024-12-30] VITALS: Ht 162.6 cm; Wt 73.5 kg
[~2024-12-30 00:22] MED LIST changes: +AMLO2.5T2 PO; +ATOR-411 PO; -ATOR20TA66 PO; -FLO0.4C PO; -FLUO-167 PO; -GABA-532 PO; +GABA-535 PO; -GABA300C PO; -HYDR-3686 PO; -IBUP-1986 PO; -LISI10TA4 PO; -LURA20TA PO; +NICO-631 TD; -OLAN5TAB29 PO; +PALI3TAB5 PO; -PANT40TA4 PO; +PANT40TA54 PO; +QUET400T PO; +TAMS-55 PO; -tamsulosin capsule PO; -thiamine tablet PO
--- NOTE | 2024-12-30 02:43 | Physician Documentation ---
History of Present Illness ~ General Chief Complaint: See Chief Complaint Stated Complaint: SEE CHIEF COMPLAINT Time Seen by MD: 02:37 Primary Medical Doctor: NONE History of Present Illness Initial Comments Patient presents to the emergency room refusing to talk to anybody that has doctor. When I was able to get to him he has many vague complaints about not feeling right. Medication Reconciliation Allergies: Coded Allergies: No Known Allergies (Unverified , 07/08/17) Scheduled Amlodipine* (Norvasc*), 2 TAB PO DAILY Atorvastatin Calcium (Lipitor), 1 TAB PO DAILY Gabapentin (Gabapentin), 1 CAP PO BID Nicotine 14 MG Patch* (Habitrol 14 MG Patch*), 1 PATCH TD DAILY Paliperidone (Paliperidone ER), 3 MG PO DAILY Pantoprazole Sodium (Pantoprazole Sodium), 40 MG PO DAILY Quetiapine Fumarate (Seroquel), 1 TAB PO HS Tamsulosin Hcl* (Flomax*), 1 CAP PO DAILY Past Medical History Past Medical History: High Cholesterol, Hypertension, GERD, Chronic Pain, Depression Past Surgical History: noncontributory Patient History: FH: alcohol abuse FATHER (dad drank at 21 yo) FH: colon cancer FATHER, Onset:50's - 60 FH: diabetes mellitus GRANDFATHER OR GRANDMOTHER, Onset:60 years & older (Maternal grandmother had diabetes type 2) Alcohol Use: None Drug Use: marijuana, methamphetamine Lives In: Homeless Occupation: unemployed Review of Systems ROS All review of systems negative except as per HPI Physical Exam Physical Exam Vital Signs: Respiratory Rate: 15, Weight: 73.500 Physical Exam General: Patient is awake, alert, oriented x4 in no acute distress Head: Normocephalic and atraumatic. Eyes: Conjunctival normal. EOMI. PERRL. ENT: Mucous membranes moist. Neck: Supple, trachea is midline. Chest: Clear to auscultation bilaterally without rales, rhonchi, or wheezes. There is no accessory muscle use or retractions. Cardiac: RRR without murmurs, gallops, or rubs. Abd: Soft, nondistended, nontender, with normoactive bowel sounds. No guarding, rebound, or rigidity. Progress Results/Orders Results/Orders Vital Signs 12/30/24 00:23 Resp 15 Medical Decision Making Additional information obtaine: old records Findings Patient is sitting in the lobby he had no acute distress. He is vague complaints. I said to him it does not sound like you have a specific complaint and I can not help you with this. I do not believe he is gravely disabled and that has not demonstrate any SI/HI behavior. Of note patient is homeless and the weather is inclement. Patient is not let him in his due vitals however upon auscultation he has regular rate and rhythm. Lungs clear Differential Diagnosis Psychosis, gravely disabled, malingering, schizoaffective Departure Disposition: HOME / SELF CARE / HOMELESS Impression: Primary Impression: General medical exam Condition: Stable Referrals: NO PRIMARY CARE PROVIDER (PCP) Signature Scribe Signature: No scribe Attestation: The note accurately reflects work and decisions made by me.Swapnil Low MD 12/30/24 02:51 SWAPNIL LOW MD Dec 30, 2024 02:43
[2024-12-30 03:15] VITALS: BP 136/98; PULSE 102; RESP 15; TEMP 96.3; O2SAT 99
== END 2024-12-30 03:19 | disposition home or self-care (01) ==
LOC: ER 00:22
DX: Z00.00 Encounter for general adult medical examination without abnormal findings (principal); I10 Essential (primary) hypertension; G89.29 Other chronic pain; E78.00 Pure hypercholesterolemia, unspecified; K21.9 Gastro-esophageal reflux disease without esophagitis; F32.A Depression, unspecified; F12.90 Cannabis use, unspecified, uncomplicated; F15.90 Other stimulant use, unspecified, uncomplicated; Z79.899 Other long term (current) drug therapy; Z56.0 Unemployment, unspecified; Z59.00 Homelessness unspecified
CPT/HCPCS: 99282